=== PATIENT | male | born 1960 | race Caucasian/White ===

== ENCOUNTER → 2018-05-07 | Outpatient (REF) ==
[~2018-05-07] MED LIST: DIA5 PO; HYD2 PO
--- NOTE | 2018-05-07 15:51 | RADIOLOGY IMAGING REPORT ---
FACILITY: [facility] PATIENT NAME: Jhoan Menezes : 1960 MR: [id number] V: [id number] EXAM DATE: ORDERING PHYSICIAN: OZZIE HORN TECHNOLOGIST: Location: [facility] [place] Patient: Jhoan Menezes : 1960 Visit/Account:[id number] Date of Sevice: 05/07/2018 Exam type: CERVICAL SPINE MIN 4 VIEW History: History of cervical spine surgery, left arm weakness Comparison: February 04, 2013. Findings: Again noted is anterior fusion of the cervical spine from C3 to C7 with anterior plate and screws bon y fusion appears to been achieved of the vertebral bodies. No evidence of prevertebral soft tissue s welling. There is a 3 mm retrolisthesis of C2 with respect to C3 on the neutral lateral image which is reduced on the flexion image and increases to 4.5 mm on the extension view.. These findings appea r relatively unchanged when compared to the prior examination IMPRESSION: 1. Stable postoperative changes of the cervical spine as detailed above Report Dictated By: Veronica Craig MD at 05/07/2018 3:43 PM Report E-Signed By: Veronica Craig MD at 05/07/2018 3:48 PM WSN:[email or web address]
== END ==
LOC: RAD 12:21
PROVIDERS: ATTEND Orthopaedic Surgery Orthopaedic Surgery of the Spine
DX: R53.1 Weakness (principal); Z98.890 Other specified postprocedural states
CPT/HCPCS: 72050

== ENCOUNTER → 2018-05-08 | Outpatient (REF) ==
--- NOTE | 2018-05-08 16:06 | RADIOLOGY IMAGING REPORT ---
FACILITY: [facility] [place] PATIENT NAME: Jhoan Menezes : 1960 MR: [id number] V: [id number] EXAM DATE: [id number] ORDERING PHYSICIAN: OZZIE HORN TECHNOLOGIST: Location: [facility] - [place] Patient: Jhoan Menezes : 1960 Visit/Account:[id number] Date of Sevice: 05/08/2018 Exam type: LUMBAR SPINE 2 OR 3 VIEW History: Low back pain, no injury Comparison: None. Findings: There are five nonrib-bearing lumbar-type vertebral bodies present. There is mild to moderate disc s pace narrowing seen throughout the entire lumbar spine and visualized portion of the lower thoracic s pine other than L5-S1 where there is moderate to severe disc space narrowing and sclerosis of the adj acent endplates.. Marginal osteophytes are seen throughout the visualized lumbar spine. There is mi ld irregularity along the anterior superior endplate of L4 and L3. This could represent mild belkis madie fractures of indeterminate age. Given the marginal osteophytes findings suggest a chronic etiol ogy. There is straightening of normal lumbar lordosis. IMPRESSION: 1. Mild to moderate spondylotic changes throughout the thoracolumbar spine Moderate to severe spondylotic changes L5-S1. If symptoms persist MR may be helpful Report Dictated By: Veronica Craig MD at 05/08/2018 3:59 PM Report E-Signed By: Veronica Craig MD at 05/08/2018 4:02 PM WSN:[email or web address]
== END ==
LOC: RAD 15:27
PROVIDERS: ATTEND Orthopaedic Surgery Orthopaedic Surgery of the Spine
DX: M47.895 Other spondylosis, thoracolumbar region (principal); M47.897 Other spondylosis, lumbosacral region
CPT/HCPCS: 72100

== ENCOUNTER 2018-08-14 17:27 | Inpatient (IN) | payer SELFPAY ==
[~2018-08-14] VITALS: Ht 175.3 cm; Wt 67.3 kg
--- NOTE | 2018-08-14 17:40 | ER Report ---
History and Physical Time Seen By MD: 17:37 Hx. of Stated Complaint: pt states has poor balance and fell about one foot injuring L hip a few hours ago, (had a bone graft from his hip to his neck 2011) (KATHYA SILVER) Time Seen By MD: 17:56 (MERLIN JIMÉNEZ MD) HPI/ROS CHIEF COMPLAINT: Fall with right hip pain HISTORY OF PRESENT ILLNESS: This is a 58-year-old male. He loss his balance while shaking arrived on his front step. He fell and landed on the concrete directly onto his right hip. He does have a history of prior surgeries on the right hip for bone graft. He has pain with any movement of the right hip. He denies any other injuries at this time. He denies hitting his head or loss of consciousness. He denies any pain in the back. He has normal sensation in the foot and lower leg. He can move the lower leg and foot without any problems. Pain is extremely severe with any attempted movement of the hip itself. (MERLIN JIMÉNEZ MD) Allergies: Coded Allergies: acetaminophen (Verified Allergy, Mild, RASH, 03/29/12) Home Meds Reported Medications [blood pressure med] No Conflict Check 08/14/18 Fluticasone/Salmeterol (ADVAIR 100-50 DISKUS) 1 Each Disk.w.dev, 1 EACH IH 08/14/18 Naproxen Sodium (ALEVE) 220 Mg Capsule, 220 MG PO TID, CAPSULE 08/14/18 Discontinued Reported Medications Diazepam (Valium) 5 Mg Tab, 10 MG PO Q8H PRN, #30 0 Refills 04/04/12 Hydromorphone Hcl (Dilaudid) 2 Mg Tab, 2 MG PO Q6H PRN, #80 0 Refills 04/04/12 [None] No Conflict Check 03/08/12 Reviewed Nurses Notes: Yes (MERLIN IJMÉNEZ MD) Hx Substance Use Disorder: No Hx Alcohol Use: Yes (6 pk daily) (KATHYA SILVER) Constitutional Vital Sign - Last 24 Hours 08/14/18 08/14/18 08/14/18 08/14/18 17:27 17:31 17:34 17:42 Temp 98.4 Pulse ??? 79 80 Resp 22 B/P (MAP) 146/90 146/90 (108) Pulse Ox 95 99 O2 Delivery Room Air 08/14/18 08/14/18 08/14/18 08/14/18 17:57 18:00 18:12 18:27 Pulse 86 ??? 82 B/P (MAP) 140/99 (113) Pulse Ox 99 94 08/14/18 08/14/18 08/14/18 08/14/18 18:30 18:42 18:57 19:00 Pulse 92 90 B/P (MAP) 135/87 (103) 136/84 (101) Pulse Ox 95 94 08/14/18 08/14/18 08/14/18 08/14/18 19:12 19:17 19:30 19:32 Pulse 89 97 87 B/P (MAP) 132/85 (101) Pulse Ox 96 97 96 08/14/18 08/14/18 08/14/18 08/14/18 19:47 20:00 20:02 20:17 Pulse 96 86 92 B/P (MAP) 129/84 (99) Pulse Ox 95 96 95 08/14/18 08/14/18 08/14/18 20:30 20:32 20:47 Pulse 90 90 B/P (MAP) 132/87 (102) Pulse Ox 95 89 (MERLIN JIMÉNEZ MD) Physical Exam General Appearance: The patient is alert. He is in acute distress due to pain. Eyes: Pupils are equal, round. No pallor, injection or icterus. ENT: Mucous membranes are moist. Normal oral mucosa. Posterior oropharynx is normal. Neck: Supple and non tender. Respiratory: Breathing easily, no chest pain. Cardiovascular: Regular rate and rhythm. Normal capillary refill. Gastrointestinal: Abdomen is soft and non tender. Nondistended. Normal active bowel sounds. Neurological: Alert and oriented x3. No focal neurologic deficits Skin: Warm and dry. Musculoskeletal: No pain with palpation of right leg or the right hip. Pain worsens with any attempted range of motion, either passive or active. DIFFERENTIAL DIAGNOSIS: After history and physical exam, differential diagnosis was considered for fall with right hip pain. (MERLIN JIMÉNEZ MD) Medical Decision Making Data Points Result Diagram: 08/15/1851708/15/18517 EKG/Imaging Imaging INDICATION: fall, right hip pain. DATE: 08/14/2018 8:01 PM. TECHNIQUE: HIP RIGHT COMPARISON: None FINDINGS: A right femoral neck fracture is mildly displaced and impacted. The osseous excrescence at the right iliac crest is presumably from an old trauma. The pelvic ring appears intact. The sacrum is partially obscured by stool and bowel gas. IMPRESSION: Right femoral neck fracture. Report Dictated By: Mirian Mejias MD at 08/14/2018 8:01 PM (MERLIN JIMÉNEZ MD) ED Course/Re-evaluation Clinical Indication for ER IV: Hydration, IV Access ED Course After evaluation as noted, x-rays were obtained. This does show a right femoral neck fracture. Called and discussed the case with Dr. Garcia. He called and discussed the case with his colleague Dr. Gutierrez, who will be admitting and seeing the patient tomorrow. We will keep the patient nothing by mouth after midnight in anticipation of surgery tomorrow. They did ask if the hospitalist could consult for medical evaluation prior to surgery. Order given for Ancef 1 g national investigative producer to the OR. [employer]AND AMBASSADOR pump with Dilaudid ordered for pain control overnight and also gave a dose of Valium to try and help with pain and muscle spasm. The extraction for comfort also ordered. Discussed all of these plans with the patient and answered any questions that he and friends/family had. Decision to Disposition Date: Aug 14, 2018 Decision to Disposition Time: 21:00 (MERLIN JIMÉNEZ MD) Depart Departure Latest Vital Signs Vital Signs Date Time Temp Pulse Resp B/P (MAP) Pulse Ox O2 Delivery O2 Flow Rate FiO2 08/14/18 20:47 90 89 08/14/18 20:30 132/87 (102) 08/14/18 17:31 98.4 22 Room Air (MERLIN JIMÉNEZ MD) Impression: Primary Impression: Hip fracture, right Condition: Condition Unchanged Disposition: Admitted from ER Problem Qualifiers Primary Impression: Hip fracture, right Encounter type: initial encounter Fracture type: closed Qualified Codes: S72.001A - Fracture of unspecified part of neck of right femur, initial encounter for closed fracture KATHYA SILVER PRECISION AGRONOMIST-BC Aug 14, 2018 17:40 MERLIN JIMÉNEZ MD Aug 14, 2018 17:57
[2018-08-14] MEDS ORDERED: fentaNYL CITR 100 MCG/2 ML AMP IVP ONE (18:05)
[2018-08-14] MEDS ORDERED: HYDROMORPHONE HCL 1 MG/ML SYRINGE IVP ONE ×3 (19:15→21:05)
--- NOTE | 2018-08-14 20:06 | RADIOLOGY IMAGING REPORT ---
FACILITY: [facility] PATIENT NAME: Jhoan Menezes : 1960 MR: [id number] V: [id number] EXAM DATE: ORDERING PHYSICIAN: MERLIN JIMÉNEZ TECHNOLOGIST: Location: [facility] Patient: Jhoan Menezes : 1960 Visit/Account:[id number] Date of Sevice: 08/14/2018 INDICATION: fall, right hip pain. DATE: 08/14/2018 8:01 PM. TECHNIQUE: HIP RIGHT COMPARISON: None FINDINGS: A right femoral neck fracture is mildly displaced and impacted. The osseous excrescence at the right iliac crest is presumably from an old trauma. The pelvic ring appears intact. The sacrum is partially obscured by stool and bowel gas. IMPRESSION: Right femoral neck fracture. Report Dictated By: Mirian Mejias MD at 08/14/2018 8:01 PM Report E-Signed By: Mirian Mejias MD at 08/14/2018 8:03 PM WSN:[email or web address]
[2018-08-14] MEDS ORDERED: NAPR220C12 PO (20:37)
[2018-08-14] MEDS ORDERED: FLUT1DIS27 IH (20:37)
[2018-08-14] MEDS ORDERED: blood pressure med (20:37)
[2018-08-14] MEDS ORDERED: DIAZEPAM 50 MG/10 ML MDV IVP ONE (21:05)
[2018-08-14 21:49] VITALS: BP 115/60
[2018-08-14] MEDS ORDERED: ceFAZolin(*) 1 GM VIAL 1 GM in NS(*) 0.9% 100 ML ADDVANT BAG 100 ML IV ONE (22:30)
[2018-08-14] MEDS ORDERED: ONDANSETRON 4 MG/2 ML VIAL IVP PRN ×3 (22:45→23:15)
[2018-08-14] MEDS ORDERED: HYDROmorphone PCA 6 MG/30 ML IV PRN ×2 (22:45→23:15)
--- NOTE | 2018-08-14 23:07 | Hospitalist Consultation ---
History of Present Illness Requesting Physician Dr. Gutierrez Reason for Consult Pre-op evaluation/history of asthma Chief Complaint Fall/right hip pain History of Present Illness 58yo male with PMHx significant for asthma and hypertension. He reports falling at home on porch while shaking rugs to clean them. He states he had one foot only half on the step when he lost balance and fell striking his right hip. He had significant pain and difficulty ambulating. He contacted his niece who brought him to the ER. He was found to have right femoral neck fracture and admitted to the orthopedic service. He has had previous surgeries/anesthesia without problems. He denies any CP/dyspnea. He denies any history of bleeding or clotting problems. He does not smoke, but does chew tobacco. He drinks alcohol daily "about a six pack". History Problems: (1) Asthma Status: Chronic (2) HTN (hypertension) Status: Chronic (3) History of surgery on arm (4) History of fusion of cervical spine Home Meds Reported Medications [blood pressure med] No Conflict Check 08/14/18 Fluticasone/Salmeterol (ADVAIR 100-50 DISKUS) 1 Each Disk.w.dev, 1 EACH IH 08/14/18 Naproxen Sodium (ALEVE) 220 Mg Capsule, 220 MG PO TID, CAPSULE 08/14/18 Discontinued Reported Medications Diazepam (Valium) 5 Mg Tab, 10 MG PO Q8H PRN, #30 0 Refills 04/04/12 Hydromorphone Hcl (Dilaudid) 2 Mg Tab, 2 MG PO Q6H PRN, #80 0 Refills 04/04/12 [None] No Conflict Check 03/08/12 Allergies: Coded Allergies: acetaminophen (Verified Allergy, Mild, RASH, 03/29/12) Patient History: Renal failure MOTHER Scleroderma FATHER Hx Smoking: No Tobacco Used: Smokeless Hx Alcohol Use: Yes (6 pk daily) Review of Systems Constitutional: No Fever, No Chills, No Night Sweats Neurological: No Syncope, No Confusion, No Weakness, No Dizziness Eyes: No Vision Change, No Loss of Vision ENT: No Hearing Loss Cardiovascular: No Chest Pain, No Palpitations Respiratory: No Shortness of Breath, No Cough Gastrointestinal: No Nausea, No Vomiting, No Diarrhea, No Constipation, No Hematemesis, No Hematochezia, No Melena, No Abdominal Pain Genitourinary: No Dysuria, No Hematuria Musculoskeletal: Pain, Impaired Mobility Psychiatric: No Depression, No Anxiety Exam Vital Signs Vital Signs Date Time Temp Pulse Resp B/P (MAP) Pulse Ox O2 Delivery O2 Flow Rate FiO2 08/14/18 21:49 98.4 84 16 115/60 (78) 96 Nasal Cannula 3.0 General Appearance: Alert, Awake Neuro: Other (no focal deficits, but limitations due to right hip fracture) Eyes: PERRLA ENT: Oropharynx Clear Neck: No Masses Cardiovascular: Regular Rate and Rhythm Respiratory: Clear to Auscultation Chest: No Tenderness GI: Abd Soft and Non-Tender Extremities: Warm, Pulses (PT/DP normal bilaterally), Perfused Integumentary: Skin Intact without Lesion / Mass Psych: Alert & Oriented X3 Assessment and Plan Problems: (1) Hip fracture, right Status: Acute Assessment & Plan: Will check pre-op labs, EKG, CXR. No obvious contraindications based on his history. He will be at risk for possible alcohol withdrawal. He will need DVT prophylaxis post-op. (2) HTN (hypertension) Status: Chronic Assessment & Plan: His BPs are borderline low at the present time. Will hold off on any medications at this time. He does not recall what he is taking. Monitor closely. (3) Asthma Status: Chronic Assessment & Plan: Will continue his Advair. He does not appear to have any acute problem at this time. Venous Thromboembolism Antithrombotics Is Pt On Any Antithrombotics?: No (due to upcoming procedure) Exam Sepsis Risk: No Definite Risk SALMA BASILIO MD Aug 14, 2018 23:07
[2018-08-14] MEDS: KCL/D1/2NS 20 MEQ 1000 ML 1,000 ML IV SCH (23:09)
[2018-08-14] MEDS: HYDROmorphone PCA 6 MG/30 ML IV PRN (23:10)
[2018-08-15] VITALS (11 sets, daily range): BP systolic 119–159; BP diastolic 82–100; Ht 175.3 cm; Wt 67.3 kg
[2018-08-15 05:55] LABS: PLATELET COUNT, AUTOMATED 247 K/uL (150-450)
--- NOTE | 2018-08-15 06:03 | EKG ---
FACILITY: [facility] PATIENT NAME: BEATRICE DAVILA : [id number] MR: [id number] V: [id number] EXAM DATE: ORDERING PHYSICIAN: SALMA BASILIO TECHNOLOGIST: SURY Virgen Reason : PREOP Blood Pressure : / mmHG Vent. Rate : 090 BPM Atrial Rate : 090 BPM P-R Int : 148 ms QRS Dur : 086 ms QT Int : 370 ms P-R-T Axes : 048 021 023 degrees QTc Int : 452 ms Normal sinus rhythm Normal ECG Confirmed by Chas Downey ([id number]) on 08/15/2018 8:28:43 PM Referred By: Confirmed By:Chas Wilcox
[2018-08-15 06:08] LABS: INR 0.98
[2018-08-15] MEDS: SALMETEROL/FLUTIC 250/50 1 INH INH SCH ×2 (06:16→18:00)
--- NOTE | 2018-08-15 07:40 | RADIOLOGY IMAGING REPORT ---
FACILITY: [facility] PATIENT NAME: Jhoan Menezes : 1960 MR: [id number] V: [id number] EXAM DATE: ORDERING PHYSICIAN: SALMA BASILIO TECHNOLOGIST: Location: [facility] Patient: Jhoan Menezes : 1960 Visit/Account:[id number] Date of Sevice: 08/14/2018 CHEST SINGLE AP History: pre-op hip fracture/history of asthma FINDINGS: Comparison studies: None. Tubes and Lines: None. Lungs and pleura: Well aerated. No evidence of focal consolidation or pleural effusions. Mediastinum: normal. Cardiac silhouette: normal . Osseous structures: Cervical spinal fusion hardware noted. Mild bilateral osteoarthrosis of the gle nohumeral joints. IMPRESSION: Negative chest Report Dictated By: Inderjit Corral MD at 08/15/2018 7:33 AM Report E-Signed By: Inderjit Corral MD at 08/15/2018 7:35 AM WSN:[id number]
[2018-08-15] MEDS: HYDROmorphone PCA 6 MG/30 ML IV PRN (08:07)
[2018-08-15] MEDS: FOLIC ACID/CYANOCOB/PYRIDOXINE PO SCH (09:00)
[2018-08-15] MEDS: KCL/D1/2NS 20 MEQ 1000 ML 1,000 ML IV SCH (09:32)
--- NOTE | 2018-08-15 12:12 | HISTORY AND PHYSICAL ---
DATE OF SERVICE: August 15, 2018 ADMISSION DIAGNOSIS Right hip fracture. HISTORY OF PRESENT ILLNESS Mr. Menezes is a 58-year-old male who unfortunately slipped and fell about a foot off his front porch on the late evening of August 14, 2018. He was seen in the emergency room and found to have a displaced femoral neck fracture and was admitted to the orthopedic service with hospitalist consultation. He denies any numbness, tingling, no other complaints but does have right sided hip pain. PAST MEDICAL HISTORY * Significant for asthma. * Hypertension. PAST SURGICAL HISTORY * Cervical spine surgery with right iliac crest bone graft by Dr. Magana. * Right forearm surgery. ALLERGIES TYLENOL CURRENT MEDICATIONS * Advair * Blood pressure medication SOCIAL HISTORY Admits to chewing tobacco about a can per day. Admits to heavy alcohol use with a 6 pack plus per day. He does live at home and is currently seeking disability for arm dysfunction. PHYSICAL EXAMINATION On examination cervical spine demonstrates well healed incisions, limited range of motion. Right upper extremity demonstrating a well healed previous incision, radial, medial ulnar nerves are intact. Right hip does demonstrate internal rotation and shortening, general range of motion and log roll causes pain. He is nontender over the distal femur and knee. Plantar flexion, dorsiflexion, intact. Brisk capillary refills in his digits. Sensation, nerves are intact. LABORATORY DATA WBC 7.2, hematocrit 42.7, hemoglobin 14.9, platelets 247,000. INR is 0.98. Urinalysis is negative. X-rays from the emergency room do demonstrate a displaced femoral neck fracture on the right side. There are postoperative changes on the iliac crest from his previous bone grafting. ASSESSMENT This is a 58-year-old male with acute displaced femoral neck fracture. PLAN At this point, we have discussed risks, benefits, alternatives, possible complications of surgical and nonsurgical intervention with Mr. Menezes and at this stage he would like to proceed with surgery. He is going to proceed with surgery with Dr. Gutierrez for a total hip arthroplasty on the right hip this evening. [facility] CAN[facility]ER CENTERParminder
--- NOTE | 2018-08-15 12:52 | Hospitalist Progress Note ---
Subjective Progress Notes Subjective He has some complaints of nausea this morning. Patient Complains of: Cardiovascular: No: Chest Pain Respiratory: No: Shortness of Breath Gastrointestinal: Nausea, Vomiting Physical Exam Vital Signs Date Time Temp Pulse Resp B/P (MAP) Pulse Ox O2 Delivery O2 Flow Rate FiO2 08/15/18 09:21 98.4 84 18 139/100 (113) 95 Nasal Cannula 3.5 Intake and Output 08/15/18 07:00 Output Total 950 ml Balance -950 ml Output Urine Total 950 ml General Appearance: Alert, Awake, No Acute Distress, Afebrile Neuro: No Gross deficits Cardiovascular: Regular Rate and Rhythm Respiratory: No Respiratory Distress, Clear to Auscultation GI: Soft and Non-Tender Psych: Alert & Oriented X3, Appropriate Mood & Affect Result Diagram: 08/15/1851708/15/18517 Assessment and Plan Problems: (1) Hip fracture, right Status: Acute Assessment & Plan: Will check pre-op labs, EKG, CXR. No obvious contraindications based on his history. He will be at risk for possible alcohol withdrawal. He will need DVT prophylaxis post-op. (2) HTN (hypertension) Status: Chronic Assessment & Plan: His BPs are borderline normal at the present time. Will hold off on any medications at this time. He does not recall what he is taking. Monitor closely. (3) Asthma Status: Chronic Assessment & Plan: Will continue his Advair. He does not appear to have any acute problem at this time. (4) Alcohol abuse Status: Acute Assessment & Plan: He reports he drinks a 6 pack daily. CIWA assessments ordered and Ativan ordered. He is NPO now, but after surgery recommend starting Valium if needed for CIWA. Exam Sepsis Risk: No Definite Risk Problem Qualifiers (1) Hip fracture, right: Encounter type: initial encounter Fracture type: closed Qualified Codes: S72.001A - Fracture of unspecified part of neck of right femur, initial encounter for closed fracture SUSAN WADE MID LEVEL PROVIDER Aug 15, 2018 12:52
[2018-08-15] MEDS: LORazepam 2 MG/ML VIAL IVP PRN (14:21)
[2018-08-15] MEDS ORDERED: cloNIDine EPIDUR INJ 100MCG/ML 40 MCG, ROPIVACAINE 0.5% 20 ML VIAL 25 ML, EPINEPHrine H... EPI ONE (14:30)
[2018-08-15] MEDS ORDERED: TRANEXAMIC AC 1000 MG/10ML SDV 1,000 MG in DEXTROSE 5% 50 ML BAG 50 ML IV ONE (14:30)
[2018-08-15] MEDS ORDERED: BACITRACIN 50000 UNIT/VIAL 100,000 UNIT in NS 0.9% 3000 ML IRRIGATION BAG 3,000 ML IR ONE (14:30)
[2018-08-15] MEDS ORDERED: FAMOTIDINE 20 MG TAB PO ONE (15:30)
[2018-08-15] MEDS ORDERED: NORMOSOL R SOLN(*) 1000 ML BAG 1,000 ML IV ONE (16:00)
[2018-08-15] MEDS ORDERED: ceFAZolin(*) 1 GM VIAL 1 GM in NS(*) 0.9% 100 ML ADDVANT BAG 100 ML IV ONE (16:00)
[2018-08-15] MEDS ORDERED: DEXAMETHASONE SOD 4 MG/ML VIAL ONE (16:39)
[2018-08-15] MEDS ORDERED: ONDANSETRON 4 MG/2 ML VIAL ONE (16:39)
[2018-08-15] MEDS ORDERED: PROPOFOL EMUL(*) 10MG/ML 20 ML 20 ML ONE (16:39)
[2018-08-15] MEDS ORDERED: fentaNYL CITR 100 MCG/2 ML AMP ONE (16:39)
[2018-08-15] MEDS ORDERED: LIDOCAINE MPF 1% 5 ML VIAL ONE (16:39)
[2018-08-15] MEDS ORDERED: FAMOTIDINE(*) 20MG/50ML PREMIX 50 ML IVPB ONE (16:41)
[2018-08-15] MEDS ORDERED: KETAMINE HCL 200 MG/20 ML MDV ONE ×2 (17:28→17:44)
[2018-08-15] MEDS ORDERED: MAGNESIUM CITRATE 300 ML BTL PO PRN ×2 (19:50→22:15)
[2018-08-15] MEDS ORDERED: diphenhydrAMINE 25 MG CAP PO PRN ×2 (19:50→22:15)
[2018-08-15] MEDS ORDERED: ZOLPIDEM TARTRATE 5 MG TAB PO PRN ×2 (19:50→22:15)
[2018-08-15] MEDS ORDERED: MAGNESIUM HYDROXIDE* 30ML UDCP PO PRN ×2 (19:50→22:15)
[2018-08-15] MEDS ORDERED: ONDANSETRON 4 MG/2 ML VIAL IVP PRN ×2 (19:50→22:15)
[2018-08-15] MEDS ORDERED: LR 1000 ML BAG 1000 ML IV PRN ×2 (19:50→22:15)
[2018-08-15] MEDS ORDERED: FLUSH 10 ML SYR IVP PRN ×2 (19:50→22:15)
[2018-08-15] MEDS ORDERED: BISACODYL 10 MG SUPP PR PRN ×2 (19:50→22:15)
[2018-08-15] MEDS ORDERED: PROMETHAZINE 25 MG/ML 1 ML AMP IVP PRN ×2 (19:50→22:15)
[2018-08-15] MEDS ORDERED: diphenhydrAMINE 50 MG/ML VIAL IVP PRN ×2 (19:50→22:15)
--- NOTE | 2018-08-15 20:15 | OPERATIVE REPORT 1 ---
EVENT DATE: August 15, 2018 SURGEON: Elroy Gutierrez MD ANESTHESIOLOGIST: Jensen Garner MD ANESTHESIA: General plus spinal. SALES REPRESENTATIVE AIRCRAFT: JUDIE Jarvis PREOPERATIVE DIAGNOSIS Right hip femoral neck fracture and subcapital fracture. POSTOPERATIVE DIAGNOSIS Right hip femoral neck fracture and subcapital fracture with a little bit of arthritis. PROCEDURE PERFORMED Right total hip arthroplasty done for a fracture. FINDINGS The patient had arthritic changes on the superior aspect of the femoral head and also superior part of the acetabulum. Given his age and these findings, we ended up doing a total hip rather than a bipolar. ESTIMATED BLOOD LOSS About 200 mL. DRAINS None. COMPLICATIONS Small crack in the calcar neck, but did not perpetuate past that area. It did not go all the way through and was just maybe a 1 cm x 0.5 cm piece of bone that was stable, so it was just left in place and did not need cabling. TOURNIQUET TIME Not applicable. IMPLANTS USED Nikita ML Taper Stem which was a size 10 with a +3.5, 40 mm ceramic head, a neutral liner to a 56 mm cup that was a Trabecular Metal Cluster Hole Cup with a 35 mm screw into the superior hole. SPECIMENS None. INDICATIONS AND HISTORY This patient is a 58-year-old male who presented to the hospital with a femoral neck fracture on the right side. He does not recall how he fell. It does sound like he drinks quite a bit of alcohol and has some balance problems and issues associated with this, and so therefore, he fell and landed on his right hip. He was found to have a femoral neck fracture. He was admitted by my partner, Dr. Garcia, and then was set up for a bipolar versus total hip arthroplasty today, August 15, 2018. The risks and benefits were discussed with the patient, and informed consent was obtained. Unfortunately, when we actually got to sign a consent, he had had quite a bit of Ativan, but we did verbally discuss it with him prior to the procedure, and Anesthesia had done the same with the anesthetic aspects. DESCRIPTION OF PROCEDURE As the patient was brought in the operating room, he and the procedure were verified. He was placed on his side and given a spinal by Anesthesia. He was then turned on his back, then intubated, and then turned on his side in the lateral decubitus position with the right hip towards the ceiling. The right hip was then prepped and draped in the usual fashion. A timeout was observed verifying the correct patient and procedure. The standard incision was made over the posterolateral aspect of the hip. It was taken through the skin and subcutaneous tissue. He had very little subcutaneous tissue in this area, and we got all the way down to the IT band and the gluteal musculature. Once I was able to split this, I then put a Charnley retractor underneath this, then identified the short external rotators, and took them down in a standard fashion. I then tagged the piriformis for later repair. I was then able to take the capsule down and then tag the capsule for later repair. Once we did this, we were able to dislocate the hip, then remove the head without any difficulty, and freshen up the neck cut without any issues. I then turned attention to the acetabulum where there was noted to be some superior wear on the acetabulum in the cartilage area and then also on the femoral head in the superior area where the x-rays had indicated that he may have some cartilage loss in this area. I, therefore, then proceeded with a total hip arthroplasty by subsequently taking out the labrum and then reaming up to a 55 mm reamer and then placing a 56 mm cup. The cup was put in a little bit of a horizontal position on purposed secondarily due to the patient's falling and alcoholism aspects and with a little bit more version in order to try and assert less dislocations. I then put in a screw to hold it in place. He did not have the greatest bone in this area as it was a little bit osteoporotic. This then made the cut very stable, and then we put in the liner without any difficulty after irrigating with copious amounts of saline with the pulsatile lavage, which we had done throughout the entire case. We then turned attention to the femur, and then I was able to freshen up the cut with a box cutting osteotome. This was then followed by the canal finder and lateralizing reamer. I then was able to broach from a [address] up to a 10. We then took intraoperative x-rays of the stem and the head. This was found to be a little bit short, and so therefore, we then placed a +3.5 head, and this looked significantly better. We then dislocated the hip and then put in the final stem. Upon putting in the final stem, there was noted to be a small crack in the calcar. There were actually two areas of cracking which looked like just a small piece in the calcar which was just a small fragment which was not unstable and did not have any instability associated with the stem. The stem was not loose. We took another intraoperative x-ray just to verify that there were no signs of problems or anything to cable, and there were no signs of propagation of that crack. It was just very small at the very top, so therefore, we did not need to address it. I then relocated the hip without any difficulty, closed the capsule with a heavy Ethibond. This was then followed by closure of the piriformis and attaching it back to the posterior aspect of the femur using drill holes through the posterior aspect of the femur. I then was able to close the gluteal musculature and the IT band with a #2 Stratafix, then 2-0 Stratafix was utilized in the subcutaneous tissue, and then subcuticular 4-0 running Monocryl was utilized in the skin. I did utilize a joint cocktail in the middle portion of the case in order to get better anesthetization and then put in Steri-Strips, gauze 4 x 4's, and then a soft dressing over the hip with a hip wrap. The patient was then awakened, extubated, and transferred to PACU in stable condition. He will be admitted and then will be weightbearing as tolerated with Medicine following. STACEY
--- NOTE | 2018-08-15 21:36 | RADIOLOGY IMAGING REPORT ---
FACILITY: [facility] - [place] PATIENT NAME: Jhoan Menezes : 1960 MR: [id number] V: [id number] EXAM DATE: ORDERING PHYSICIAN: MACO ADLER TECHNOLOGIST: Location: [facility] [place] Patient: Jhoan Menezes : 1960 Visit/Account:[id number] Date of Sevice: 08/15/2018 Examination: HIP IN OR RIGHT Comparison: 08/14/2018 History: Right hip fracture. Findings: Right hip arthroplasty with noncemented femoral component. No periprosthetic fracture. The visualized pelvic ring is intact. Left hip alignment is within normal limits. Expected postoperative change in the soft tissues. IMPRESSION: Normal alignment of the right hip arthroplasty. Report Dictated By: Ryder Julien MD at 08/15/2018 9:30 PM Report E-Signed By: Ryder Julien MD at 08/15/2018 9:32 PM [id number]
--- NOTE | 2018-08-15 21:38 | RADIOLOGY IMAGING REPORT ---
FACILITY: [facility] PATIENT NAME: Jhoan Menezes : 1960 MR: [id number] V: [id number] EXAM DATE: ORDERING PHYSICIAN: MACO ADLER TECHNOLOGIST: Location: [facility] - [place] Patient: Jhoan Menezes : 1960 Visit/Account:[id number] Date of Sevice: 08/15/2018 Examination: HIP IN OR RIGHT Comparison: Earlier the same day. History: RIGHT HIP FRACTURE/POSSIBLE FEMUR FRACTURE Findings: Right hip arthroplasty; the femoral component has been exchanged. Component alignment is wi thin normal limits. No periprosthetic fracture. Expected postoperative change in the soft tissues. IMPRESSION: Right hip arthroplasty with exchange of the femoral component. Report Dictated By: Ryder Julien MD at 08/15/2018 9:32 PM Report E-Signed By: Ryder Julien MD at 08/15/2018 9:33 PM [id number]
--- NOTE | 2018-08-15 21:39 | RADIOLOGY IMAGING REPORT ---
FACILITY: [facility] - [place] PATIENT NAME: Jhoan Menezes : 1960 MR: [id number] V: [id number] EXAM DATE: ORDERING PHYSICIAN: MACO ADLER TECHNOLOGIST: [place] [facility] [place]: Jhoan Menezes : 1960 Visit/Account:[id number] Date of Sevice: 08/15/2018 Examination: PELVIS Comparison: Same day and earlier. History: Right hip arthroplasty. Findings: Right total hip arthroplasty with noncemented femoral component. Component alignment is wit hin normal limits. No periprosthetic fracture. The visualized pelvic ring is intact. Chronic deformit y of the right iliac crest. Left hip alignment is within normal limits. Atherosclerosis. Expected pos toperative change in the soft tissues. IMPRESSION: Expected postoperative appearance of the right total hip arthroplasty. Report Dictated By: Ryder Julien MD at 08/15/2018 9:34 PM Report E-Signed By: Ryder Julien MD at 08/15/2018 9:35 PM [id number]
[2018-08-15] MEDS ORDERED: HYDROmorphone HCL 2 MG/ML SDV IVP PRN (22:15)
[2018-08-15] MEDS ORDERED: oxyCODONE HCL 5 MG CAP PO PRN (22:25)
[2018-08-16] VITALS (13 sets, daily range): BP systolic 108–147; BP diastolic 75–96
[2018-08-16] MEDS: ceFAZolin(*) 1 GM VIAL 1 GM in NS(*) 0.9% 100 ML ADDVANT BAG 100 ML IVPB SCH ×3 (00:43→17:28)
[2018-08-16] MEDS ORDERED: ceFAZolin(*) 1 GM VIAL 1 GM in NS(*) 0.9% 100 ML ADDVANT BAG 100 ML IVPB SCH (01:00)
[2018-08-16] MEDS: LORazepam 2 MG/ML VIAL IVP PRN ×3 (01:37→05:14)
[2018-08-16] MEDS: SALMETEROL/FLUTIC 250/50 1 INH INH SCH ×2 (05:02→18:08)
[2018-08-16] MEDS ORDERED: FOLIC ACID 1 MG TAB PO SCH (09:00)
[2018-08-16] MEDS: THIAMINE HCL 100 MG TAB PO SCH (09:43)
[2018-08-16] MEDS: ENOXAPARIN 40 MG/0.4ML SYR SC SCH (09:44)
[2018-08-16] MEDS: FOLIC ACID/CYANOCOB/PYRIDOXINE PO SCH (09:44)
--- NOTE | 2018-08-16 09:57 | Hospitalist Progress Note ---
Subjective Progress Notes Subjective He has some altered mental status this morning. He is actively withdrawing from alcohol. Patient Complains of: Cardiovascular: No: Chest Pain Respiratory: No: Shortness of Breath Physical Exam Vital Signs Date Time Temp Pulse Resp B/P (MAP) Pulse Ox O2 Delivery O2 Flow Rate FiO2 08/16/18 08:39 98.7 82 8 135/96 (109) 94 Nasal Cannula 1.0 Intake and Output 08/16/18 07:00 Intake Total 3740 ml Output Total 1725 ml Balance 2015 ml Intake Oral 240 ml IV Total 1800 ml Other 1700 ml Output Urine Total 975 ml Emesis 600 ml Estimated Blood Loss 150 ml General Appearance: Awake, No Acute Distress, Afebrile Neuro: No Gross deficits Cardiovascular: Regular Rate and Rhythm Respiratory: No Respiratory Distress, Clear to Auscultation GI: Soft and Non-Tender Extremities: No Edema Psych: Other (he is aware he is in hospital, he thinks he is in [place]) Result Diagram: 08/16/1852908/15/18517 Assessment and Plan Problems: (1) Hip fracture, right Status: Acute Assessment & Plan: He had pre-op labs, EKG, CXR. No obvious contraindications based on his history. He will be started on Lovenox for DVT prophylaxis. (2) HTN (hypertension) Status: Chronic Assessment & Plan: His BPs are borderline normal at the present time. Will hold off on any medications at this time. He does not recall what he is taking. Monitor closely. (3) Asthma Status: Chronic Assessment & Plan: Will continue his Advair. He does not appear to have any acute problem at this time. (4) Alcohol abuse Status: Acute Assessment & Plan: He reports he drinks a 6 pack daily. CIWA assessments ordered. He will be started on Valium if needed for CIWA. Mental status changes could be secondary to alcohol detox and anesthesia combined. Continue to monitor. Exam Sepsis Risk: No Definite Risk Problem Qualifiers (1) Hip fracture, right: Encounter type: initial encounter Fracture type: closed Qualified Codes: S72.001A - Fracture of unspecified part of neck of right femur, initial encounter for closed fracture SUSAN WADE BIOMEDICAL EQUIPMENT TECHNICIAN Aug 16, 2018 09:57
[2018-08-16] MEDS: oxyCODONE HCL 5 MG CAP PO PRN ×2 (09:59→17:47)
[2018-08-16] MEDS: DIAZEPAM 10 MG TAB PO PRN ×6 (12:43→20:44)
[2018-08-16] MEDS: HYDROmorphone HCL 2 MG/ML SDV IVP PRN ×2 (15:02→21:11)
[2018-08-16] MEDS: NICOTINE POLACRILEX 2 MG GUM PO PRN (19:02)
[2018-08-16] MEDS ORDERED: AMLO-113 PO (20:08)
[2018-08-16] MEDS ORDERED: NAPR-417 PO (20:12)
[2018-08-17] VITALS (12 sets, daily range): BP systolic 117–140; BP diastolic 78–101
[2018-08-17] MEDS: DIAZEPAM 10 MG TAB PO PRN ×9 (04:49→23:33)
[2018-08-17] MEDS: HYDROmorphone HCL 2 MG/ML SDV IVP PRN (04:50)
[2018-08-17 06:08] LABS: PLATELET COUNT, AUTOMATED 159 K/uL (150-450)
[2018-08-17] MEDS: THIAMINE HCL 100 MG TAB PO SCH (08:34)
[2018-08-17] MEDS: ENOXAPARIN 40 MG/0.4ML SYR SC SCH (08:34)
[2018-08-17] MEDS: FOLIC ACID/CYANOCOB/PYRIDOXINE PO SCH (08:34)
--- NOTE | 2018-08-17 11:34 | Hospitalist Progress Note ---
Subjective Progress Notes Subjective He is still disoriented to place and time this morning. He is still requiring Valium for his alcohol detox this morning. Patient Complains of: Cardiovascular: No: Chest Pain Respiratory: No: Shortness of Breath Physical Exam Vital Signs Date Time Temp Pulse Resp B/P (MAP) Pulse Ox O2 Delivery O2 Flow Rate FiO2 08/17/18 10:39 97.7 81 12 133/93 (106) 97 Nasal Cannula 1.0 Intake and Output 08/17/18 06:59 Intake Total 830 ml Output Total 1350 ml Balance -520 ml Intake Oral 600 ml IV Total 230 ml Output Urine Total 1350 ml # Voids 1 General Appearance: No Acute Distress, Afebrile Neuro: No Gross deficits Cardiovascular: Regular Rate and Rhythm Respiratory: No Respiratory Distress, Clear to Auscultation Psych: Other (disoriented to place and time) Result Diagram: 08/17/1854408/17/18544 Assessment and Plan Problems: (1) Hip fracture, right Status: Acute Assessment & Plan: He had pre-op labs, EKG, CXR. No obvious contraindications based on his history. He will be started on Lovenox for DVT prophylaxis. (2) HTN (hypertension) Status: Chronic Assessment & Plan: His BPs are borderline normal at the present time. Will hold off on any medications at this time. He does not recall what he is taking. Monitor closely. (3) Asthma Status: Chronic Assessment & Plan: Will continue his Advair. He does not appear to have any acute problem at this time. (4) Alcohol abuse Status: Acute Assessment & Plan: He reports he drinks a 6 pack daily. CIWA assessments order ed. He was started on Valium if needed for CIWA. Mental status changes could be secondary to alcohol detox and anesthesia combined. Continue to monitor. Exam Sepsis Risk: No Definite Risk Problem Qualifiers (1) Hip fracture, right: Encounter type: initial encounter Fracture type: closed Qualified Codes: S72.001A - Fracture of unspecified part of neck of right femur, initial encounter for closed fracture SUSAN WADE LUBRICATION WORKER Aug 17, 2018 11:34
[2018-08-17] MEDS: NICOTINE POLACRILEX 2 MG GUM PO PRN (11:56)
[2018-08-17] MEDS: oxyCODONE HCL 5 MG CAP PO PRN ×2 (13:52→21:50)
[2018-08-17] MEDS: SALMETEROL/FLUTIC 250/50 1 INH INH SCH ×2 (17:51→18:00)
[2018-08-18] MEDS: DIAZEPAM 10 MG TAB PO PRN ×2 (00:36→06:26)
[2018-08-18] MEDS: SALMETEROL/FLUTIC 250/50 1 INH INH SCH ×2 (06:00→17:22)
[2018-08-18] MEDS: oxyCODONE HCL 5 MG CAP PO PRN ×3 (06:25→16:26)
[2018-08-18 06:40] LABS: PLATELET COUNT, AUTOMATED 192 K/uL (150-450)
[2018-08-18] MEDS: LORazepam 2 MG/ML VIAL IVP PRN (06:40)
[2018-08-18 07:19] VITALS: BP 135/104
[2018-08-18] MEDS: ENOXAPARIN 40 MG/0.4ML SYR SC SCH (08:17)
[2018-08-18] MEDS: THIAMINE HCL 100 MG TAB PO SCH (08:18)
[2018-08-18] MEDS: FOLIC ACID/CYANOCOB/PYRIDOXINE PO SCH (08:18)
--- NOTE | 2018-08-18 08:58 | Hospitalist Progress Note ---
Subjective Progress Notes Subjective He is somewhat somnolent this AM, but does awaken and tries to answer questions. Physical Exam Vital Signs Date Time Temp Pulse Resp B/P (MAP) Pulse Ox O2 Delivery O2 Flow Rate FiO2 08/18/18 08:03 98 Room Air 0.5 08/18/18 07:19 98.5 93 16 135/104 (114) 93 Intake and Output 08/18/18 07:00 Intake Total 220 ml Output Total 350 ml Balance -130 ml Intake Oral 220 ml Output Urine Total 350 ml # Voids 1 General Appearance: Other (somnolent) Neuro: Other (he does move all four extremities) Cardiovascular: Regular Rate and Rhythm, No Edema Respiratory: Clear to Auscultation (decreased effort) Chest: No Tenderness GI: Soft and Non-Tender Extremities: Warm, Perfused Result Diagram: 08/18/1861108/18/18611 Assessment and Plan Problems: (1) Hip fracture, right Status: Acute Assessment & Plan: He had MINDI with Dr. Gutierrez on 08/15/18 and appears to have tolerated well. He has had alcohol withdrawal post-op, which has complicated his rehab. He is on Lovenox for DVT prophylaxis. (2) HTN (hypertension) Status: Chronic Assessment & Plan: His BPs are borderline normal/elevated at the present time, likely due to withdrawal. Will hold off on any medications at this time. Monitor closely. (3) Asthma Status: Chronic Assessment & Plan: Will continue his Advair. He does not appear to have any acute problems at this time. (4) Alcohol abuse Status: Acute Assessment & Plan: He reports he drinks a 6 pack of beer daily - I suspect it is probably more. He is on CIWA protocol and has been receiving benzodiazepines. He is also getting B vitamins. Continue to monitor. Exam Sepsis Risk: No Definite Risk Problem Qualifiers (1) Hip fracture, right: Encounter type: initial encounter Fracture type: closed Qualified Codes: S72.001A - Fracture of unspecified part of neck of right femur, initial encounter for closed fracture SALMA BASILIO MD Aug 18, 2018 08:58
[2018-08-18 10:51] VITALS: BP 129/102
[2018-08-18 14:36] VITALS: BP 138/105
[2018-08-18] MEDS: NICOTINE 14 MG/24 HR PATCH TD SCH (16:26)
[2018-08-18 20:36] VITALS: BP 110/80
[2018-08-18 23:41] VITALS: BP 131/96
[2018-08-19] VITALS (7 sets, daily range): BP systolic 109–131; BP diastolic 76–92
[2018-08-19] MEDS: DIAZEPAM 10 MG TAB PO PRN (03:20)
[2018-08-19] MEDS: SALMETEROL/FLUTIC 250/50 1 INH INH SCH ×2 (06:04→17:13)
[2018-08-19] MEDS: THIAMINE HCL 100 MG TAB PO SCH (09:00)
[2018-08-19] MEDS: FOLIC ACID/CYANOCOB/PYRIDOXINE PO SCH (09:00)
[2018-08-19] MEDS: NICOTINE 14 MG/24 HR PATCH TD SCH (09:02)
[2018-08-19] MEDS: ENOXAPARIN 40 MG/0.4ML SYR SC SCH (09:02)
[2018-08-19] MEDS: oxyCODONE HCL 5 MG CAP PO PRN ×2 (10:00→18:03)
--- NOTE | 2018-08-19 12:58 | Hospitalist Progress Note ---
Subjective Progress Notes Subjective 58M admitted for Hip Fx and subsequently underwent EtOH withdrawal. Symptoms improving may be ready for discharge to Rehab in near future. Patient Complains of: Respiratory: No: Cough, Congestion Gastrointestinal: No Nausea, No Vomiting Musculoskeletal: Pain Physical Exam Vital Signs Date Time Temp Pulse Resp B/P (MAP) Pulse Ox O2 Delivery O2 Flow Rate FiO2 08/19/18 12:12 98.2 92 16 129/87 (101) 96 Room Air 08/19/18 03:05 0.5 Intake and Output 08/19/18 06:59 Intake Total 220 ml Output Total 820 ml Balance -600 ml Intake Oral 220 ml Output Urine Total 820 ml # Voids 2 General Appearance: Alert, Awake, No Acute Distress Neuro: No Gross deficits Eyes: PERRLA ENT: Normal Cardiovascular: Normal Rhythm & Peripheral Pulses Respiratory: No Respiratory Distress GI: Soft and Non-Tender Musculoskeletal: Other (+ leg pain) Integumentary: Skin Intact without Lesion / Mass Result Diagram: 08/18/1861108/18/18611 Assessment and Plan Problems: (1) Hip fracture, right Status: Acute Assessment & Plan: He had MINDI with Dr. Gutierrez on 08/15/18 and appears to have tolerated well. He has had alcohol withdrawal post-op, which has complicated his rehab. He is on Lovenox for DVT prophylaxis. (2) HTN (hypertension) Status: Chronic Assessment & Plan: His BPs are borderline normal/elevated at the present time, likely due to withdrawal. Will hold off on any medications at this time. Monitor closely. (3) Asthma Status: Chronic Assessment & Plan: Will continue his Advair. He does not appear to have any acute problems at this time. (4) Alcohol abuse Status: Acute Assessment & Plan: Improving. He reports he drinks a 6 pack of beer daily - I suspect it is probably more. He is on CIWA protocol and has been receiving benzodiazepines. He is also getting B vitamins. Continue to monitor. Exam Sepsis Risk: No Definite Risk Problem Qualifiers (1) Hip fracture, right: Encounter type: initial encounter Fracture type: closed Qualified Codes: S72.001A - Fracture of unspecified part of neck of right femur, initial enc ounter for closed fracture ESPINOZA CARRILLO DO Aug 19, 2018 12:58
[2018-08-19] MEDS: HYDROmorphone HCL 2 MG/ML SDV IVP PRN ×2 (13:42→23:55)
[2018-08-19] MEDS: DOCUSATE SODIUM 100 MG CAP PO SCH (21:31)
[2018-08-20] MEDS: oxyCODONE HCL 5 MG CAP PO PRN ×3 (01:56→18:18)
[2018-08-20 03:48] VITALS: BP 125/93
[2018-08-20] MEDS: HYDROmorphone HCL 2 MG/ML SDV IVP PRN (03:53)
[2018-08-20] MEDS: SALMETEROL/FLUTIC 250/50 1 INH INH SCH ×2 (06:45→18:00)
[2018-08-20 06:56] VITALS: BP 131/102
[2018-08-20 08:07] VITALS: BP 116/89
[2018-08-20] MEDS ORDERED: amLODIPine BESYL(*) 5 MG TAB PO SCH (09:00)
[2018-08-20] MEDS: DOCUSATE SODIUM 100 MG CAP PO SCH (09:42)
[2018-08-20] MEDS: POLYETHYLENE GLYCOL 17 GM PKT PO SCH (09:42)
[2018-08-20] MEDS: NICOTINE 14 MG/24 HR PATCH TD SCH (09:42)
[2018-08-20] MEDS: THIAMINE HCL 100 MG TAB PO SCH (09:42)
[2018-08-20] MEDS: amLODIPine BESYL(*) 5 MG TAB PO SCH (09:43)
[2018-08-20] MEDS: ENOXAPARIN 40 MG/0.4ML SYR SC SCH (09:43)
[2018-08-20] MEDS: DIAZEPAM 5 MG TAB PO PRN ×2 (09:46→14:10)
[2018-08-20] MEDS: FOLIC ACID/CYANOCOB/PYRIDOXINE PO SCH (09:46)
[2018-08-20] MEDS: DIAZEPAM 10 MG TAB PO PRN (09:46)
--- NOTE | 2018-08-20 11:41 | Hospitalist Progress Note ---
Subjective Progress Notes Subjective He has no complaints this morning. He had no acute events overnight. Patient Complains of: Cardiovascular: No: Chest Pain Respiratory: No: Shortness of Breath Physical Exam Vital Signs Date Time Temp Pulse Resp B/P (MAP) Pulse Ox O2 Delivery O2 Flow Rate FiO2 08/20/18 06:56 98.4 100 20 131/102 (112) 96 08/20/18 03:48 Nasal Cannula 0.5 Intake and Output 08/20/18 01:00 Intake Total 120 ml Output Total 975 ml Balance -855 ml Intake Oral 120 ml Output Urine Total 975 ml # Voids 1 General Appearance: Alert, Awake, No Acute Distress, Afebrile Neuro: No Gross deficits Cardiovascular: Regular Rate and Rhythm Respiratory: No Respiratory Distress, Clear to Auscultation GI: Soft and Non-Tender Extremities: Warm, Perfused; No Edema Psych: Alert & Oriented X3, Appropriate Mood & Affect Result Diagram: 08/18/18 0612 08/20/18 0535 Assessment and Plan Problems: (1) Hip fracture, right Status: Acute Assessment & Plan: He had MINDI with Dr. Gutierrez on 08/15/18 and appears to have tolerated well. He has had alcohol withdrawal post-op, which has complicated his rehab. He is on Lovenox for DVT prophylaxis. (2) HTN (hypertension) Status: Chronic Assessment & Plan: He does take amlodipine chronically. This has been restarted 08/20 with parameters. (3) Asthma Status: Chronic Assessment & Plan: Will continue his Advair. He does not appear to have any acute problems at this time. (4) Alcohol abuse Status: Acute Assessment & Plan: Improving. He reports he drinks a 6 pack of beer daily - I suspect it is probably more. He is on CIWA protocol and has been receiving benzodiazepines. He is also getting B vitamins. Continue to monitor. Exam Sepsis Risk: No Definite Risk Problem Qualifiers (1) Hip fracture, right: Encounter type: initial encounter Fracture type: closed Qualified Codes: S72.001A - Fracture of unspecified part of neck of right femur, initial encounter for closed fracture SUSAN WADE SELF DEFENSE INSTRUCTOR Aug 20, 2018 11:41
[2018-08-20 16:14] VITALS: BP 121/80
[2018-08-20 19:23] VITALS: BP 128/81
[2018-08-21] VITALS (7 sets, daily range): BP systolic 99–146; BP diastolic 72–89
[2018-08-21] MEDS: oxyCODONE HCL 5 MG CAP PO PRN ×3 (04:33→19:02)
[2018-08-21] MEDS: DIAZEPAM 5 MG TAB PO PRN (06:13)
[2018-08-21] MEDS: FOLIC ACID/CYANOCOB/PYRIDOXINE PO SCH (09:35)
[2018-08-21] MEDS: POLYETHYLENE GLYCOL 17 GM PKT PO SCH (09:36)
[2018-08-21] MEDS: DOCUSATE SODIUM 100 MG CAP PO SCH ×2 (09:36→22:15)
[2018-08-21] MEDS: THIAMINE HCL 100 MG TAB PO SCH (09:36)
[2018-08-21] MEDS: amLODIPine BESYL(*) 5 MG TAB PO SCH (09:36)
[2018-08-21] MEDS: ENOXAPARIN 40 MG/0.4ML SYR SC SCH (09:37)
[2018-08-21] MEDS: NICOTINE 14 MG/24 HR PATCH TD SCH (09:37)
[2018-08-21] MEDS ORDERED: NALOXONE HCL 0.4 MG/ML VIAL IVP PRN (13:25)
[2018-08-21 13:54] LABS: PLATELET COUNT, AUTOMATED 288 K/uL (150-450)
--- NOTE | 2018-08-21 14:05 | Hospitalist Progress Note ---
Subjective Progress Notes Subjective He had an episode of slow respirations and decreased awakening. He was given Narcan, which helped resolve symptoms. Patient did awaken and had complaints of pain. He has not been progressing well with physical therapy. Patient Complains of: Cardiovascular: No: Chest Pain Respiratory: No: Shortness of Breath Physical Exam Vital Signs Date Time Temp Pulse Resp B/P (MAP) Pulse Ox O2 Delivery O2 Flow Rate FiO2 08/21/18 13:33 98.1 08/21/18 13:14 101 8 97 Nasal Cannula 2.0 Intake and Output 08/21/18 01:00 Intake Total 240 ml Balance 240 ml Intake Oral 240 ml General Appearance: Alert, Awake, No Acute Distress, Afebrile Neuro: No Gross deficits Cardiovascular: Regular Rate and Rhythm Respiratory: No Respiratory Distress (improved after Narcan), Clear to Auscultation GI: Soft and Non-Tender Extremities: Warm, Perfused; No Edema Psych: Other (decreased mental status) Result Diagram: 08/18/18 0612 08/20/18 0535 Assessment and Plan Problems: (1) Hip fracture, right Status: Acute Assessment & Plan: He had MINDI with Dr. Gutierrez on 08/15/18 and appears to have tolerated well. He has had alcohol withdrawal post-op, which has complicated his rehab. He is on Lovenox for DVT prophylaxis. (2) HTN (hypertension) Status: Chronic Assessment & Plan: He does take amlodipine chronically. This has been restarted 08/20. (3) Asthma Status: Chronic Assessment & Plan: Will continue his Advair. He does not appear to have any acute problems at this time. (4) Alcohol abuse Status: Acute Assessment & Plan: Improving. He reports he drinks a 6 pack of beer daily - I suspect it is probably more. He is on CIWA protocol and has been receiving benzodiazepines. He is also getting B vitamins. Continue to monitor. (5) TBI (traumatic brain injury) Status: Chronic Assessment & Plan: It is reported the patient has a TBI. However, the patient is a poor historian and cannot confirm details of injury. His left arm has minimal function and use. He wears a sling at home. (6) Decreased alertness Status: Acute Assessment & Plan: He had an episode of decreased alertness and decreased respirations. He was given Narcan and the patient did resume better respirations and alertness. He will get a head CT and labs to assess ammonia also. Exam Sepsis Risk: No Definite Risk Problem Qualifiers (1) Hip fracture, right: Encounter type: initial encounter Fracture type: closed Qualified Codes: S72.001A - Fracture of unspecified part of neck of right femur, initial encount er for closed fracture SUSAN WADE Aug 21, 2018 14:05
--- NOTE | 2018-08-21 14:14 | RADIOLOGY IMAGING REPORT ---
FACILITY: [facility] PATIENT NAME: Jhoan Menezes : 1960 MR: [id number] V: [id number] EXAM DATE: ORDERING PHYSICIAN: SUSAN WADE TECHNOLOGIST: Location: [facility] Patient: Jhoan Menezes : 1960 Visit/Account:[id number] Date of Sevice: 08/21/[address] scan without contrast COMPARISONS: None ADDITIONAL PERTINENT HISTORY: Altered mental status TECHNIQUE: Multiple axial images were obtained from the skull base to the vertex without IV contrast . One of the following dose optimization techniques was utilized in the performance of this exam: Aut omated exposure control; adjustment of the mA and/or kV according to the patient's size; or use of an iterative reconstruction technique. Specific details can be referenced in the facility's radiology CT exam operational policy. FINDINGS: Midline shift: Negative Ventricles: Mild enlargement of the lateral and third ventricles. Otherwise negative Brain parenchyma: Patchy hypoattenuation within the periventricular and subcortical white matter, no nspecific but likely representing small vessel ischemic change on a chronic basis. No intraparenchyma l hemorrhage or mass effect. Extra-axial spaces: Mild cerebral atrophy. Intracranial vasculature: Cavernous internal carotid and distal vertebral artery calcifications. Oth erwise negative Osseous structures: Negative Paranasal sinuses and mastoid air cells: Mild mucosal thickening involving the right maxillary sinus . Surrounding soft tissues and orbits: Negative IMPRESSION: 1. Age related changes as described above. 2. No evidence of acute intracranial pathology. 3. Underlying paranasal sinus disease. Report Dictated By: Elroy Peña MD at 08/21/2018 2:07 PM Report E-Signed By: Elroy Peña MD at 08/21/2018 2:10 PM [email or web address]
[2018-08-21] MEDS: SALMETEROL/FLUTIC 250/50 1 INH INH SCH ×2 (17:01→18:00)
[2018-08-22] MEDS: SALMETEROL/FLUTIC 250/50 1 INH INH SCH ×2 (05:45→17:16)
[2018-08-22 07:57] VITALS: BP 128/87
[2018-08-22] MEDS: NICOTINE 14 MG/24 HR PATCH TD SCH (08:59)
[2018-08-22] MEDS: POLYETHYLENE GLYCOL 17 GM PKT PO SCH (08:59)
[2018-08-22] MEDS: FOLIC ACID/CYANOCOB/PYRIDOXINE PO SCH (08:59)
[2018-08-22] MEDS: ENOXAPARIN 40 MG/0.4ML SYR SC SCH (09:00)
[2018-08-22] MEDS: amLODIPine BESYL(*) 5 MG TAB PO SCH (09:00)
[2018-08-22] MEDS: THIAMINE HCL 100 MG TAB PO SCH (09:00)
[2018-08-22] MEDS: DOCUSATE SODIUM 100 MG CAP PO SCH ×2 (09:00→21:39)
[2018-08-22] MEDS: oxyCODONE HCL 5 MG CAP PO PRN ×2 (09:00→18:12)
--- NOTE | 2018-08-22 10:37 | Hospitalist Progress Note ---
Subjective Progress Notes Subjective He is awake and alert. He states he is ready to "get moving". Physical Exam Vital Signs Date Time Temp Pulse Resp B/P (MAP) Pulse Ox O2 Delivery O2 Flow Rate FiO2 08/22/18 09:00 94 Nasal Cannula 1.0 08/22/18 07:57 97.8 94 20 128/87 (101) Intake and Output 08/22/18 07:00 Intake Total 1022 ml Output Total 600 ml Balance 422 ml Intake Oral 1022 ml Output Urine Total 600 ml # Voids 1 General Appearance: Alert, Awake (responds slowly) Neuro: Other (left upper extremity paresis - chronic) Cardiovascular: Regular Rate and Rhythm Respiratory: Clear to Auscultation GI: Soft and Non-Tender Extremities: Warm, Perfused Result Diagram: 08/21/18 1341 08/21/18 1341 Assessment and Plan Problems: (1) Hip fracture, right Status: Acute Assessment & Plan: He had MINDI with Dr. Gutierrez on 08/15/18 and appears to have tolerated well. He has had alcohol withdrawal post-op, which has complicated his rehab. He is on Lovenox for DVT prophylaxis. (2) HTN (hypertension) Status: Chronic Assessment & Plan: He does take amlodipine chronically. This has been restarted 08/20. Monitor BPs. (3) Asthma Status: Chronic Assessment & Plan: We have continued his Advair. He does not appear to have any acute problems at this time. (4) Alcohol abuse Status: Acute Assessment & Plan: Improving/resolved. He reported he drinks a 6 pack of beer daily - suspect it is probably more. He was on CIWA protocol and had been re ceiving benzodiazepines. He is getting B vitamins. Continue to monitor. (5) TBI (traumatic brain injury) Status: Chronic Assessment & Plan: It is reported the patient has a TBI. However, the patient is a poor historian and cannot confirm details of injury. His left arm has minimal function and use. He wears a sling at home. (6) Decreased alertness Status: Acute Assessment & Plan: He had an episode of decreased alertness and decreased respirations. He was given Narcan and the patient did resume better respirations and alertness. Head CT unremarkable. Labs show minimal elevation of ammonia otherwise unremarkable. Exam Sepsis Risk: No Definite Risk Problem Qualifiers (1) Hip fracture, right: Encounter type: initial encounter Fracture type: closed Qualified Codes: S72.001A - Fracture of unspecified part of neck of right femur, initial encounter for closed fracture SALMA BASILIO MD Aug 22, 2018 10:37
[2018-08-22 13:09] VITALS: BP 118/98
[2018-08-22 15:34] VITALS: BP 118/90
[2018-08-22] MEDS ORDERED: COLCHICINE 0.6 MG TAB PO ONE ×2 (19:30→22:00)
[2018-08-22 21:51] VITALS: BP 125/75
[2018-08-23] MEDS: oxyCODONE HCL 5 MG CAP PO PRN (03:39)
[2018-08-23 03:41] VITALS: BP 139/89
[2018-08-23 05:35] LABS: PLATELET COUNT, AUTOMATED 312 K/uL (150-450)
[2018-08-23 05:38] LABS: INR 1.02
[2018-08-23] MEDS: SALMETEROL/FLUTIC 250/50 1 INH INH SCH (05:49)
[2018-08-23 08:33] VITALS: BP 133/91
[2018-08-23] MEDS ORDERED: BISACODYL 10 MG SUPP PR PRN ×2 (09:05→09:10)
[2018-08-23] MEDS: amLODIPine BESYL(*) 5 MG TAB PO SCH (09:22)
[2018-08-23] MEDS: THIAMINE HCL 100 MG TAB PO SCH (09:22)
[2018-08-23] MEDS: POLYETHYLENE GLYCOL 17 GM PKT PO SCH (09:22)
[2018-08-23] MEDS: DOCUSATE SODIUM 100 MG CAP PO SCH (09:30)
[2018-08-23] MEDS: ENOXAPARIN 40 MG/0.4ML SYR SC SCH (09:30)
[2018-08-23] MEDS: NICOTINE 14 MG/24 HR PATCH TD SCH (09:31)
--- NOTE | 2018-08-23 09:39 | Hospitalist Depart ---
Discharge Summary Reason for Hosp/Final Diag: (1) Hip fracture, right Status: Acute Hospital Course & Plan: He had MINDI with Dr. Gutierrez on 08/15/18 and appears to have tolerated well. He has had alcohol withdrawal post-op, which has complicated his rehab. He is on Lovenox for DVT prophylaxis. (2) HTN (hypertension) Status: Chronic Hospital Course & Plan: He does take amlodipine chronically. (3) Asthma Status: Chronic Hospital Course & Plan: We have continued his Advair. He does not appear to have any acute problems at this time. (4) Alcohol abuse Status: Acute Hospital Course & Plan: He did suffer withdrawal symptoms. We did have him on CIWA protocol, but his symptoms have now resolved. (5) TBI (traumatic brain injury) Status: Chronic Hospital Course & Plan: It is reported the patient has a TBI. However, the patient is a poor historian and cannot confirm details of injury. His left arm has minimal function and use. He wears a sling at home. (6) Decreased alertness Status: Acute Hospital Course & Plan: He had an episode of decreased alertness and decreased respirations. He was given Narcan and the patient did resume better respirations and alertness. Head CT unremarkable. Labs show minimal elevation of ammonia otherwise unremarkable. Departure Latest Vital Signs Vital Signs 08/23/18 08/23/18 08/23/18 03:41 08:33 08:37 Temp 98.2 Pulse 96 Resp 12 B/P (MAP) 133/91 (105) Pulse Ox 83 O2 Delivery Room Air O2 Flow Rate 1.0 Weight (Pounds): 148 Weight (Ounces): 6.0 Result Diagram: 08/23/1852308/23/18523 Condition: Improved PT/OT Follow Up For: PT Evaluation and Treat, OT Evaluation and Treat Discharge Instructions Home Meds Reported Medications Naproxen Sodium (Naproxen Sodium ER) 500 Mg Tbmp.24hr, 1 CAP PO 1-2XD PRN for PAIN 08/16/18 Amlodipine Besylate (AMLODIPINE BESYLATE) 10 Mg Tablet, 1 TAB PO QDAY, TAB 08/16/18 Fluticasone/Salmeterol (ADVAIR 100-50 DISKUS) 1 Each Disk.w.dev, 1 EACH IH 08/14/18 Discontinued Reported Medications [blood pressure med] No Conflict Check 08/14/18 Naproxen Sodium (ALEVE) 220 Mg Capsule, 220 MG PO TID, CAPSULE 08/14/18 Diet: Regular Activity: As Tolerated Venous Thromboembolism Antithrombotics Is Pt On Any Antithrombotics?: No (due to upcoming procedure) Problem Qualifiers (1) Hip fracture, right: Encounter type: initial encounter Fracture type: closed Qualified Codes: S72.001A - Fracture of unspecified part of neck of right femur, initial encounter for closed fracture (2) HTN (hypertension): Hypertension type: essential hypertension Qualified Codes: I10 - Essential (primary) hypertension TOMAS HOOPER DO Aug 23, 2018 09:39
--- NOTE | 2018-08-23 09:43 | RADIOLOGY IMAGING REPORT ---
FACILITY: [facility] [place] PATIENT NAME: Jhoan Menezes : 1960 MR: [id number] V: [id number] EXAM DATE: ORDERING PHYSICIAN: TOMAS HOOPER TECHNOLOGIST: Location: [facility] Patient: Jhoan Menezes : 1960 Visit/Account:[id number] Date of Sevice: 08/23/2018 Exam type: KUB SINGLE VIEW ABDOMEN History: Constipation Comparison: Hip x-ray 08/15/2018. Findings: Bowel gas pattern is notable for constipation. No evidence for bowel obstruction or free air. Soft tissues are otherwise unremarkable. The osseous structures junction a right hip arthroplasty. Large exostosis extending from the right il iac crest is unchanged from prior exam. IMPRESSION: 1. Constipation but no definite bowel obstruction or free air. 2. Right iliac wing exostosis is unchanged from prior exam Report Dictated By: Alan Watson MD at 08/23/2018 9:35 AM Report E-Signed By: Alan Watson MD at 08/23/2018 9:38 AM WSN:[id number]
[2018-08-23] MEDS: FOLIC ACID/CYANOCOB/PYRIDOXINE PO SCH (09:58)
[2018-08-23] MEDS ORDERED: OXYC5TAB38 PO (11:31)
== END 2018-08-23 13:10 | DRG 470 ==
LOC: ER 17:45 → MED 20:56
PROVIDERS: ADMIT Orthopaedic Surgery; ATTEND Orthopaedic Surgery
PROC: 0SR904Z Replacement of Right Hip Joint with Ceramic on Polyethylene Synthetic Substitute, Open Approach (ICD-10-PCS; principal; 2018-08-14)
DX: S72.011A Unspecified intracapsular fracture of right femur, initial encounter for closed fracture (principal); F10.230 Alcohol dependence with withdrawal, uncomplicated; J45.909 Unspecified asthma, uncomplicated; I10 Essential (primary) hypertension; R41.82 Altered mental status, unspecified; F17.220 Nicotine dependence, chewing tobacco, uncomplicated; W17.89XA Other fall from one level to another, initial encounter; Y92.008 Other place in unspecified non-institutional (private) residence as the place of occurrence of the external cause; Y99.8 Other external cause status; Z88.8 Allergy status to other drugs, medicaments and biological substances; Z98.1 Arthrodesis status; Z87.820 Personal history of traumatic brain injury
CPT/HCPCS: 36415; 36600; 70450; 71045; 72170; 74018; 81001; 82040; 82140; 82247; 82310; 82374; 82435; 82565; 82803; 82947; 84075; 84132; 84155; 84295; 84450; 84460; 84520; 84550; 85014; 85018; 85025; 85610; 86850; 86900; 86901; 93005; 94640; 97162; 97166; C1713; C1776; J0171; J0690; J0735; J1100; J1170; J1650; J1885; J2001; J2060; J2310; J2405; J2704; J2795; J3010; J3360; J3480; J3490; J7050; J7060

== ENCOUNTER 2018-08-23 13:10 | Inpatient (IN) | payer SELFPAY ==
[~2018-08-23] VITALS: Ht 175.3 cm; Wt 61.7 kg
[2018-08-23 11:30] VITALS: BP 136/84
[~2018-08-23 13:10] MED LIST changes: +AMLO-113 PO; +FLUT1DIS27 IH; +NAPR-417 PO; +NAPR220C12 PO; +OXYC5TAB38 PO; +blood pressure med
[2018-08-23] MEDS ORDERED: BISACODYL 10 MG SUPP PR PRN (14:22)
[2018-08-23] MEDS ORDERED: MAGNESIUM HYDROXIDE* 30ML UDCP PO PRN (14:22)
[2018-08-23] MEDS ORDERED: oxyCODONE HCL 5 MG CAP PO PRN (14:22)
[2018-08-23] MEDS ORDERED: NALOXONE HCL 0.4 MG/ML VIAL IVP PRN (14:23)
--- NOTE | 2018-08-23 14:31 | PT ECF NOTE ---
Type of Note: Initial Note Primary Medical Diagnosis: s/p R MINDI due to fracture: WBAT with posterior hip precautions Physical Therapy Evaluation Date: 08/23/18 SUBJECTIVE: Prior Hospitalization: Please see [facility] for Med/Surg records - recovery complicated due to ETOH withdraw Prior Level of Function: Independent with functional mobility. Prior Living Status: Single level house, Alone Community Services: No known needs Home Accessibility: 2 Stairs with rails Equipment Owned: unknown at time of eval Medical Complications/Past Medical History: Please see [facility]. R UE weakness/decreased ROM. Psychosocial Support: unknown Pain Scale (0-10): Pt reporting significant R hip and foot pain with all movement. OBJECTIVE: Strength: not appropriate to evaluate due to pain. L UE at most 1/5 strength Bed Mobility: total assist x 3 people Assistive device: Bed rail, Head of bed elevated Transfers: Total assistance x3 to attempt to stand into EZ lift. Pt unable to stand. ASSESSMENT: Pt presents with significant decrease in independence with functional mobility s/p R hip fx and repair with MINDI. Pt will require skilled PT for functional mobility training in order to return to prior level of function which is independent with functional mobility. Of note is Pt's decreased L UE function with at maximum 1/5 strength and poor trunk control. Pt demonstrates a significant L lean and Min A to maintain upright sitting. Pt has had a brain CT scan with negative results. Problem List/Current Limitations: Pain, Decreased activity tolerance, Decreased strength, Decreased ROM, Decreased coordination, Decreased balance, Generalized weakness, Abnormal tonal influence, Poor trunk/head control, Poor safety awareness, Memory deficits Short Term Goals: 1. Mod I bed mobility. 2. Mod I transfers. 3. Mod I gait x 50' with RW. 4. Ascend/descend 2 stairs SBA. 5. Independent with hip precautions. Long-Term Goals: Return to prior level of function. Patient Goals: Return to prior level of function. Rehabilitation Prognosis: Fair Barriers for Discharge: Slow recovery thus far. PLAN: The patient will benefit from skilled physical therapy services 5 times per week for 2 weeks including: Therapeutic Exercise, Therapeutic Activities, Transfer Training, Gait Training, Stair Training, Manual Therapy, ADL's, Safety Training, Neuromuscular Re-educ., Wound Care, Pt/Caregiver training, Bed Mobility Thank you for this referral. If you have any questions, concerns, or comments about this report or plan, please contact me at . Geri Spencer, PT, DPT, GCS MTDD
--- NOTE | 2018-08-23 14:43 | Consultant Pharmacy Review ---
[employer] Review Medication Review Do All Mecications have a Diag: Yes (Patient is 58 years old and does not meet Beers criteria age.) Other General Cautions * * * * Print * Help Lexicomp Interaction Analysis A = No known interaction C = Monitor therapy X = Avoid combination B = No action needed D = Consider therapy modification Drugs in this analysis: Advair Diskus; Bisacodyl; Docusate; Folbee; Lovenox; Magnesium Hydroxide; MiraLax [OTC]; Naloxone; Nicoderm CQ [OTC]; Norvasc; OxyCODONE; Thiamine * Drug-Drug Interactions * D Bisacodyl Magnesium Hydroxide (Antacids) C Magnesium Hydroxide (Magnesium Salts) Norvasc (Calcium Channel Blockers) Pneumococcal Vaccine HX Pneumo Vac ([id number]): No MANGO CARDOSO Aug 23, 2018 14:43
[2018-08-23] MEDS: oxyCODONE HCL 5 MG CAP PO PRN ×2 (14:48→20:24)
[2018-08-23 16:30] VITALS: BP 124/86
--- NOTE | 2018-08-23 16:54 | OT ECF NOTE ---
Type of Note: Initial Note Primary Medical Diagnosis: Generalized weakness s/p R MINDI due to fracture: WBAT with posterior hip precautions Occupational Therapy Evaluation Date: 08/23/18 SUBJECTIVE: Prior Hospitalization: Please see [facility] for Med/Surg records - recovery complicated due to ETOH withdraw Prior Level of Function: Independent with ADLs. Level of independence with IADLs not reported at this time. Prior Living Status: Single level house, Alone Community Services: No known needs Home Accessibility: Stairs with rails, All needs on one level Equipment Owned: Not addressed at this time Medical Complications/Past Medical History: Please refer to EMR Psychosocial Support: Niece that resides in [place]. Otherwise, unknown. Pain Scale (0-10): Pt report significant pain in right hip and foot with all movement. No numerical rating provided. OBJECTIVE: Strength: MMT: Right Left Shoulder Flexion WFL 1/5 Elbow Flexion WFL 1/5 Wrist Extension WFL 1/5 Medical/Surgery Registered Nurse WFL 1/5 (5= normal, 4= good, 3= fair, 2= poor, 1= trace) ROM: Left, Severely limited. Pt reports having a simple sling that he typically dons at all times. Functional Transfer: Assistive Device: EZ/Patient assisted lift Transfer Ability: 2-person assist Maximum assistance Total assistance Max Ax1-2 to maintain upright posture seated EOB ADL: Upper body dressing: Assistive device: Upper body dressing ability: Total assistance Lower body dressing: Assistive device: Lower body dressing ability: Total assistance Toileting: Assistive device: Toileting ability: Total assistance Grooming/hygiene: Assistive device: Grooming ability: N/T Bathing: Assistive device: Bathing ability: N/T Standardized Assessment: Denys Index of Activities of Daily Livin/20 upon initial evaluation (08/23/18). ASSESSMENT: Prior to admission, Jhoan was living alone in a single level home. Currently, he is dependent for all ADLs and requiring Total Ax2-3 for partial sit<>stands in EZ lift. He will benefit from skilled OT services to improve tolerance and optimize (I) with ADLs. Problem List/Current Limitations: Pain Decreased activity tolerance Decreased strength Decreased ROM Decreased balance Generalized weakness Abnormal tonal influence Poor safety awareness Decreased problem solving Decreased initiation Confusion Short Term Goals: 1) Pt will be Min A UB/LB dressing. 2) Pt will be Min A grooming/hygiene. 3) Pt will be Mod A toilet task. 4) Pt will be Mod A shower task. 5) Pt Denys Index of ADLs score will improve by 2 points. Auto Body Repair Teacher Goals: Return to PLOF Patient Goals: Return home Rehabilitation Prognosis: Good Barriers to Discharge: Pain, Slow progression since medical floor PLAN: The patient will benefit from skilled occupational therapy services 5 times per week for 2 weeks including: Ther ex ADL training Safety training Ther act IADL training Transfer training Adaptive equip training Bed mobility Energy conservation Thank you for this referral. If you have any questions, concerns, or comments about this report or plan, please contact me at . Sandi Martin MS, OTR/L Occupational Therapist [facility]
[2018-08-23] MEDS: SALMETEROL/FLUTIC 250/50 1 INH INH SCH (18:06)
[2018-08-23] MEDS: COLCHICINE 0.6 MG TAB PO SCH (20:24)
[2018-08-23] MEDS: DOCUSATE SODIUM 100 MG CAP PO SCH (20:24)
[2018-08-24] VITALS (17 sets, daily range): BP systolic 119–146; BP diastolic 51–85; Ht 175.3 cm; Wt 61.7 kg
[2018-08-24] MEDS: oxyCODONE HCL 5 MG CAP PO PRN ×4 (03:34→21:03)
[2018-08-24] MEDS: amLODIPine BESYL(*) 5 MG TAB PO SCH (08:49)
[2018-08-24] MEDS: FOLIC ACID/CYANOCOB/PYRIDOXINE PO SCH (08:57)
[2018-08-24] MEDS: DOCUSATE SODIUM 100 MG CAP PO SCH ×2 (08:57→21:03)
[2018-08-24] MEDS: ENOXAPARIN 40 MG/0.4ML SYR SC SCH (08:57)
[2018-08-24] MEDS: THIAMINE HCL 100 MG TAB PO SCH (08:57)
[2018-08-24] MEDS: COLCHICINE 0.6 MG TAB PO SCH ×2 (08:57→21:03)
[2018-08-24] MEDS: POLYETHYLENE GLYCOL 17 GM PKT PO SCH (09:00)
[2018-08-24] MEDS: NICOTINE 14 MG/24 HR PATCH TD SCH (09:00)
--- NOTE | 2018-08-24 09:43 | Medical Nutrition Therapy ---
Nutrition Anthropometrics Height (Inches): 69.00 Height (Calculated Centimeters: 175.966858 Weight (Pounds): 124 Weight (Calculated Kilograms): 56.416 Ata Nutrition Score: Probably Inadequate Ata Nutrition Risk Score: 14 Dietary Referral Nutrition Risk Factors: Nutrition Risk Comment: Physical Findings Physical Appearance: Underweight BMI<19 Skin Appearance Skin Appearance: Edema Edema Location Modifier: Right Edema Location: Foot Type of Edema: Degree of Edema: Gastrointestinal Symptoms GI Symtoms: Constipation Tube Present: Bowel Sounds: Recent Bowel Pattern: Constipated Stool Characteristics: Nutritional Diagnosis Nutritional Risk Acuity 2: Unintended Wt Loss >5%/mo, %IBW 75-80% Nutritional Risk Acuity 3: Nausea, Alcohol abuse Nutritional Acuity: 2-Moderate Nutrition Diagnosis: Inadequate Food Intake Nutrition Etiology: Physiological Causes Nutrition Problem/Etiology/Sym: AEB intake averaging 26% past 4 days Energy Requirement: 1800 (M- StJ) Protein Requirement: 56 (1gm/kg) Fluid Requirement: 1680 (30ml/kg) Diet Type: Diet as Tolerated SURY/REG Nutrition Intervention: Cont diet as ordered, Encourage intake, HS snack, Between meal supplement Additional Diet Restrictions: OFFER NUTR SUPPLMENTS Nutrition Monitoring & Eval Nutrition Goals: Eat 75-100% Meal RD Patient Assessment Time: [address] Assessment Type: RD Assessment Patient Nutrition Acuity: 2-Moderate Follow Up Date: Aug 28, 2018 Nutritional Comment: 08/24 Pt admitted s/p hip fx. Pt had alcohol withdrawls with decreased intake on medical unit. Wt on Aug 14 148#. Current wt 124#. Pt stated his usual wt was 130#. Question 24# wt loss in 10 days discpite a poor intake as that would mean a kcal deficit of 8400 kcal/day. wt loss may be r/t fulid loss and/or error or difference in scale. Will cont to monitor wt. Current wt places pt at 78% IBWR. Will offer nutr supplments to increase kcal and and protein intake. Alb 2.9. Pt cont lethargic which may affect nutritional intake. MANSI HERRMANN Aug 24, 2018 09:15
--- NOTE | 2018-08-24 12:56 | RADIOLOGY IMAGING REPORT ---
FACILITY: [facility] PATIENT NAME: Jhoan Menezes : 1960 MR: [id number] V: [id number] EXAM DATE: ORDERING PHYSICIAN: MACO ADLER TECHNOLOGIST: Location: [facility] Patient: Jhoan Menezes : 1960 Visit/Account:[id number] Date of Sevice: 08/24/2018 HIP RIGHT Indication: Recent fall with right hip replacement. Comparison: August 15, 2018. Findings: There is no acute fracture or dislocation of the right hip. Right hip arthroplasty without visualized hardware complication. The hip is an articulating alignmen t. Unchanged chronic deformity of the right iliac crest. Moderate degenerative changes noted within the lower lumbar spine. IMPRESSION: 1. No acute osseous abnormality right hip as above Report Dictated By: Calderon Mclean MD at 08/24/2018 12:50 PM Report E-Signed By: Calderon Mclean MD at 08/24/2018 12:51 PM WSN:[id number]
[2018-08-24] MEDS: SALMETEROL/FLUTIC 250/50 1 INH INH SCH (17:40)
[2018-08-25] VITALS (16 sets, daily range): BP systolic 115–150; BP diastolic 72–94
[2018-08-25] MEDS: oxyCODONE HCL 5 MG CAP PO PRN ×3 (04:24→18:35)
[2018-08-25] MEDS: POLYETHYLENE GLYCOL 17 GM PKT PO SCH (10:01)
[2018-08-25] MEDS: FOLIC ACID/CYANOCOB/PYRIDOXINE PO SCH (10:02)
[2018-08-25] MEDS: ENOXAPARIN 40 MG/0.4ML SYR SC SCH (10:02)
[2018-08-25] MEDS: COLCHICINE 0.6 MG TAB PO SCH ×2 (10:02→21:25)
[2018-08-25] MEDS: THIAMINE HCL 100 MG TAB PO SCH (10:02)
[2018-08-25] MEDS: DOCUSATE SODIUM 100 MG CAP PO SCH ×2 (10:02→21:25)
[2018-08-25] MEDS: amLODIPine BESYL(*) 5 MG TAB PO SCH (10:02)
[2018-08-25] MEDS: NICOTINE 14 MG/24 HR PATCH TD SCH (10:03)
--- NOTE | 2018-08-25 10:10 | RADIOLOGY IMAGING REPORT ---
FACILITY: [facility] [place] PATIENT NAME: Jhoan Menezes : 1960 MR: [id number] V: [id number] EXAM DATE: ORDERING PHYSICIAN: AVIVA PURDY TECHNOLOGIST: Location: [facility] [place] Patient: Jhoan Menezes : 1960 Visit/Account:[id number] Date of Sevice: 08/25/2018 HIP RIGHT AP COMPARISONS: Views of the right hip dated August 24, 2018 ADDITIONAL PERTINENT HISTORY: Recent fall FINDINGS: Osseous structures: Patient status post previous right total hip arthroplasty. No bony fractures. Het erotopic ossification extending off the lateral aspect of the right iliac wing. Spondylitic change in volving the lower lumbar spine. Joint spaces: Components of the right hip arthroplasty in good position. Surrounding soft tissues: Negative. IMPRESSION: 1. Patient status post previous total right hip arthroplasty. 2. No acute appearing bony abnormalities. Report Dictated By: Elroy Peña MD at 08/25/2018 10:05 AM Report E-Signed By: Elroy Peña MD at 08/25/2018 10:07 AM WSN:[id number]
[2018-08-25] MEDS: SALMETEROL/FLUTIC 250/50 1 INH INH SCH (18:30)
[2018-08-26] MEDS: oxyCODONE HCL 5 MG CAP PO PRN ×5 (02:39→22:57)
[2018-08-26 02:45] VITALS: BP 140/80
[2018-08-26] MEDS: SALMETEROL/FLUTIC 250/50 1 INH INH SCH ×2 (05:21→17:34)
[2018-08-26 07:56] VITALS: BP 127/78
[2018-08-26] MEDS: NICOTINE 14 MG/24 HR PATCH TD SCH (08:47)
[2018-08-26] MEDS: DOCUSATE SODIUM 100 MG CAP PO SCH ×2 (08:48→21:00)
[2018-08-26] MEDS: COLCHICINE 0.6 MG TAB PO SCH ×2 (08:48→21:12)
[2018-08-26] MEDS: POLYETHYLENE GLYCOL 17 GM PKT PO SCH (08:48)
[2018-08-26] MEDS: FOLIC ACID/CYANOCOB/PYRIDOXINE PO SCH (08:48)
[2018-08-26] MEDS: THIAMINE HCL 100 MG TAB PO SCH (08:48)
[2018-08-26] MEDS: amLODIPine BESYL(*) 5 MG TAB PO SCH (08:49)
[2018-08-26] MEDS: ENOXAPARIN 40 MG/0.4ML SYR SC SCH (08:49)
[2018-08-26] MEDS ORDERED: IBUP-136 PO (13:50)
[2018-08-26] MEDS ORDERED: ASPI-1017 PO (13:50)
[2018-08-26] MEDS: CYCLOBENZAPRINE HCL 10 MG TAB PO PRN ×2 (15:18→23:20)
[2018-08-26 15:56] VITALS: BP 112/81
[2018-08-26 22:56] VITALS: BP 138/79
[2018-08-27] MEDS: oxyCODONE HCL 5 MG CAP PO PRN ×5 (02:59→21:21)
[2018-08-27] MEDS: SALMETEROL/FLUTIC 250/50 1 INH INH SCH ×2 (06:31→17:13)
[2018-08-27] MEDS: CYCLOBENZAPRINE HCL 10 MG TAB PO PRN ×2 (08:04→16:28)
[2018-08-27 08:10] VITALS: BP 124/77
[2018-08-27] MEDS: POLYETHYLENE GLYCOL 17 GM PKT PO SCH (08:40)
[2018-08-27] MEDS: NICOTINE 14 MG/24 HR PATCH TD SCH (08:40)
[2018-08-27] MEDS: COLCHICINE 0.6 MG TAB PO SCH ×2 (08:40→21:21)
[2018-08-27] MEDS: THIAMINE HCL 100 MG TAB PO SCH (08:41)
[2018-08-27] MEDS: ENOXAPARIN 40 MG/0.4ML SYR SC SCH (08:41)
[2018-08-27] MEDS: DOCUSATE SODIUM 100 MG CAP PO SCH ×2 (08:41→21:21)
[2018-08-27] MEDS: amLODIPine BESYL(*) 5 MG TAB PO SCH (08:41)
[2018-08-27] MEDS: FOLIC ACID/CYANOCOB/PYRIDOXINE PO SCH (08:41)
[2018-08-27] MEDS ORDERED: ALBU8.5H IH (12:36)
[2018-08-27] MEDS ORDERED: FLUT1DIS28 IH (12:36)
[2018-08-27 16:50] VITALS: BP 134/91
[2018-08-28] MEDS: CYCLOBENZAPRINE HCL 10 MG TAB PO PRN ×3 (01:25→21:00)
[2018-08-28 03:00] VITALS: BP 129/83
[2018-08-28] MEDS: oxyCODONE HCL 5 MG CAP PO PRN ×5 (04:10→23:30)
[2018-08-28] MEDS: SALMETEROL/FLUTIC 250/50 1 INH INH SCH ×2 (07:49→17:26)
[2018-08-28] MEDS: NICOTINE 14 MG/24 HR PATCH TD SCH (08:44)
[2018-08-28] MEDS: FOLIC ACID/CYANOCOB/PYRIDOXINE PO SCH (08:44)
[2018-08-28] MEDS: THIAMINE HCL 100 MG TAB PO SCH (08:44)
[2018-08-28] MEDS: DOCUSATE SODIUM 100 MG CAP PO SCH ×2 (08:44→21:00)
[2018-08-28] MEDS: COLCHICINE 0.6 MG TAB PO SCH ×2 (08:44→21:00)
[2018-08-28] MEDS: ENOXAPARIN 40 MG/0.4ML SYR SC SCH (08:44)
[2018-08-28] MEDS: POLYETHYLENE GLYCOL 17 GM PKT PO SCH (08:44)
[2018-08-28] MEDS: amLODIPine BESYL(*) 5 MG TAB PO SCH (08:47)
--- NOTE | 2018-08-28 09:58 | HISTORY AND PHYSICAL ---
DATE OF SERVICE: August 15, 2018 ADMISSION DIAGNOSIS Right hip fracture. HISTORY OF PRESENT ILLNESS Mr. Menezes is a 58-year-old male who unfortunately slipped and fell about a foot off his front porch on the late evening of August 14, 2018. He was seen in the emergency room and found to have a displaced femoral neck fracture and was admitted to the orthopedic service with hospitalist consultation. He denies any numbness, tingling, no other complaints but does have right sided hip pain. PAST MEDICAL HISTORY * Significant for asthma. * Hypertension. PAST SURGICAL HISTORY * Cervical spine surgery with right iliac crest bone graft by Dr. Magana. * Right forearm surgery. ALLERGIES TYLENOL CURRENT MEDICATIONS * Advair * Blood pressure medication SOCIAL HISTORY Admits to chewing tobacco about a can per day. Admits to heavy alcohol use with a 6 pack plus per day. He does live at home and is currently seeking disability for arm dysfunction. PHYSICAL EXAMINATION On examination cervical spine demonstrates well healed incisions, limited range of motion. Right upper extremity demonstrating a well healed previous incision, radial, medial ulnar nerves are intact. Right hip does demonstrate internal rotation and shortening, general range of motion and log roll causes pain. He is nontender over the distal femur and knee. Plantar flexion, dorsiflexion, intact. Brisk capillary refills in his digits. Sensation, nerves are intact. LABORATORY DATA WBC 7.2, hematocrit 42.7, hemoglobin 14.9, platelets 247,000. INR is 0.98. Urinalysis is negative. X-rays from the emergency room do demonstrate a displaced femoral neck fracture on the right side. There are postoperative changes on the iliac crest from his previous bone grafting. ASSESSMENT This is a 58-year-old male with acute displaced femoral neck fracture. PLAN At this point, we have discussed risks, benefits, alternatives, possible complications of surgical and nonsurgical intervention with Mr. Menezes and at this stage he would like to proceed with surgery. He is going to proceed with surgery with Dr. Gutierrez for a total hip arthroplasty on the right hip this evening. D/T: [id number] [facility]/ H&P ADDENDUM The above issues are resolving. Patient requires usp care and/or skilled rehabilitation. Patient is ready for transfer to [facility]. Any change in condition is described below. MTDD
--- NOTE | 2018-08-28 10:56 | Medical Nutrition Therapy ---
Nutrition Anthropometrics Height (Inches): 69.00 Height (Calculated Centimeters: 175.209673 Weight (Pounds): 124 Weight (Calculated Kilograms): 56.416 Ata Nutrition Score: Very Poor Ata Nutrition Risk Score: 11 Dietary Referral Nutrition Risk Factors: Nutrition Risk Comment: Physical Findings Physical Appearance: Underweight BMI<19 Skin Appearance Skin Appearance: Edema Edema Location Modifier: Left Edema Location: Foot Type of Edema: Degree of Edema: 1+ Gastrointestinal Symptoms GI Symtoms: Constipation Tube Present: Bowel Sounds: Recent Bowel Pattern: Constipated Stool Characteristics: Nutritional Diagnosis Nutritional Risk Acuity 2: Unintended Wt Loss >5%/mo, %IBW 75-80% Nutritional Risk Acuity 3: Nausea, Alcohol abuse Nutritional Acuity: 2-Moderate Nutrition Diagnosis: Inadequate Food Intake Nutrition Etiology: Physiological Causes Nutrition Problem/Etiology/Sym: AEB intake averaging 26% past 4 days Energy Requirement: 1800 (M- StJ) Protein Requirement: 56 (1gm/kg) Fluid Requirement: 1680 (30ml/kg) Diet Type: Diet as Tolerated SURY/REG Nutrition Intervention: Cont diet as ordered, Encourage intake, HS snack, Between meal supplement Additional Diet Restrictions: OFFER NUTR SUPPLMENTS AND PUT PRO POWDER IN APPROPRIATE FOODS Nutrition Monitoring & Eval RD Patient Assessment Time: [address] Assessment Type: RD Re-Assessment Patient Nutrition Acuity: 2-Moderate Follow Up Date: Sep 04, 2018 Nutritional Comment: 08/24 Pt admitted s/p hip fx. Pt had alcohol withdrawls with decreased intake on medical unit. Wt on Aug 14 148#. Current wt 124#. Pt stated his usual wt was 130#. Question 24# wt loss in 10 days discpite a poor intake as that would mean a kcal deficit of 8400 kcal/day. wt loss may be r/t fulid loss and/or error or difference in scale. Will cont to monitor wt. Current wt places pt at 78% IBWR. Will offer nutr supplments to increase kcal and and protein intake. Alb 2.9. Pt cont lethargic which may affect nutritional intake. BK 08/28 Pt continues PT/OT for hip fx repair. No new labs since 08/23. Those abnormal labs include Na 131, glc 144, elevated liver enzymes, tot pro 6.2, alb 2.9 and low H/H. Currently on SURY with very little intake over previous few days. Staff offering nutr suppl. Will add protein powder to appropriate foods. No new wt since 08/24. Will cont to monitor and encourage intake.-CARL HERRON Aug 28, 2018 10:56
[2018-08-28] MEDS: [UNRECOGNIZED DRUG - OTHER] TP PRN (14:02)
[2018-08-28] MEDS: PETROLATUM WHITE TP PRN (14:02)
[2018-08-28 16:10] VITALS: BP 125/78
[2018-08-28] MEDS ORDERED: INFLUENZA VIRUS VAC 0.5ML SYR IM ONLY ONE (23:21)
[2018-08-29 08:30] VITALS: BP 151/89
[2018-08-29] MEDS: POLYETHYLENE GLYCOL 17 GM PKT PO SCH (08:50)
[2018-08-29] MEDS: COLCHICINE 0.6 MG TAB PO SCH ×2 (08:50→20:26)
[2018-08-29] MEDS: oxyCODONE HCL 5 MG CAP PO PRN ×3 (08:50→20:26)
[2018-08-29] MEDS: FOLIC ACID/CYANOCOB/PYRIDOXINE PO SCH (08:50)
[2018-08-29] MEDS: THIAMINE HCL 100 MG TAB PO SCH (08:50)
[2018-08-29] MEDS: ENOXAPARIN 40 MG/0.4ML SYR SC SCH (08:50)
[2018-08-29] MEDS: DOCUSATE SODIUM 100 MG CAP PO SCH ×2 (08:50→20:26)
[2018-08-29] MEDS: amLODIPine BESYL(*) 5 MG TAB PO SCH (08:51)
[2018-08-29] MEDS: NICOTINE 14 MG/24 HR PATCH TD SCH (08:51)
[2018-08-29] MEDS: SALMETEROL/FLUTIC 250/50 1 INH INH SCH ×2 (09:49→18:31)
--- NOTE | 2018-08-29 13:43 | Hospitalist Progress Note ---
Physical Exam Vital Signs Date Time Temp Pulse Resp B/P (MAP) Pulse Ox O2 Delivery O2 Flow Rate FiO2 08/29/18 10:10 92 08/29/18 09:49 Room Air 08/29/18 08:30 97.0 97 16 151/89 (109) 08/25/18 21:25 2.0 Intake and Output 08/29/18 07:00 Intake Total 390 ml Output Total 1075 ml Balance -685 ml Intake Oral 390 ml Output Urine Total 1075 ml # Voids 5 # Bowel Movements 1 Assessment and Plan Problems: (1) Hip fracture, right Status: Acute Assessment & Plan: He had a MINDI with Dr. Gutierrez on 08/15/18 and appears to have tolerated it well. He had alcohol withdrawal post-op, which has complicated his rehab. He is on Lovenox for DVT prophylaxis. (2) Headache Status: Acute Assessment & Plan: The patient states he has had a headache but no more neck stiffness than usual. He notes the only thing that helps is to sleep. Once he falls asleep the headache resolves. Suspect based on this history and his history of previous neck surgery that this is muscular. Recommended a heating pad but he declined. (3) HTN (hypertension) Status: Chronic Assessment & Plan: Continue amlodipine. Monitor BPs. He has had a few high readings. (4) Asthma Status: Chronic Assessment & Plan: Continue Advair. (5) Alcohol abuse Status: Acute Assessment & Plan: He did have withdrawal while on the medical floor. He was on CIWA at that time. His symptoms have resolved. (6) TBI (traumatic brain injury) Status: Chronic Assessment & Plan: Per the patient's PMH. The patient is a poor historian and is unable to confirm details of the injury. His left arm has minimal function and use. He does wear a sling at home. Time Spent on Plan of Care: < 30 min Problem Qualifiers (1) HTN (hypertension): Hypertension type: essential hypertension Qualified Codes: I10 - Essential (primary) hypertension MANGO BASILIO MD Aug 29, 2018 13:43
[2018-08-29] MEDS: CYCLOBENZAPRINE HCL 10 MG TAB PO PRN (15:49)
[2018-08-29 20:36] VITALS: BP 124/76
[2018-08-30] MEDS: oxyCODONE HCL 5 MG CAP PO PRN ×3 (01:47→16:28)
[2018-08-30] MEDS: CYCLOBENZAPRINE HCL 10 MG TAB PO PRN ×2 (01:47→16:29)
[2018-08-30] MEDS: SALMETEROL/FLUTIC 250/50 1 INH INH SCH ×2 (05:52→19:22)
[2018-08-30 06:34] LABS: PLATELET COUNT, AUTOMATED 489 K/uL (150-450)
[2018-08-30 08:00] VITALS: BP 134/90
[2018-08-30] MEDS: POLYETHYLENE GLYCOL 17 GM PKT PO SCH (08:48)
[2018-08-30] MEDS: DOCUSATE SODIUM 100 MG CAP PO SCH ×2 (08:49→20:36)
[2018-08-30] MEDS: COLCHICINE 0.6 MG TAB PO SCH ×2 (08:49→20:36)
[2018-08-30] MEDS: FOLIC ACID/CYANOCOB/PYRIDOXINE PO SCH (08:49)
[2018-08-30] MEDS: amLODIPine BESYL(*) 5 MG TAB PO SCH (08:49)
[2018-08-30] MEDS: NICOTINE 14 MG/24 HR PATCH TD SCH (08:49)
[2018-08-30] MEDS: THIAMINE HCL 100 MG TAB PO SCH (08:49)
[2018-08-30] MEDS: ENOXAPARIN 40 MG/0.4ML SYR SC SCH (08:49)
[2018-08-30 17:20] VITALS: BP 130/75
[2018-08-30] MEDS: [UNRECOGNIZED DRUG - OTHER] TP PRN (19:50)
[2018-08-30] MEDS: PETROLATUM WHITE TP PRN (19:50)
[2018-08-31] MEDS: oxyCODONE HCL 5 MG CAP PO PRN ×4 (01:25→18:49)
[2018-08-31] MEDS: CYCLOBENZAPRINE HCL 10 MG TAB PO PRN (05:31)
[2018-08-31] MEDS: SALMETEROL/FLUTIC 250/50 1 INH INH SCH ×2 (05:35→18:12)
[2018-08-31 08:00] VITALS: BP 125/85
[2018-08-31] MEDS: FOLIC ACID/CYANOCOB/PYRIDOXINE PO SCH (08:54)
[2018-08-31] MEDS: POLYETHYLENE GLYCOL 17 GM PKT PO SCH (08:54)
[2018-08-31] MEDS: DOCUSATE SODIUM 100 MG CAP PO SCH ×2 (08:54→20:44)
[2018-08-31] MEDS: COLCHICINE 0.6 MG TAB PO SCH ×2 (08:54→20:44)
[2018-08-31] MEDS: amLODIPine BESYL(*) 5 MG TAB PO SCH (08:54)
[2018-08-31] MEDS: NICOTINE 14 MG/24 HR PATCH TD SCH (08:55)
[2018-08-31] MEDS: ENOXAPARIN 40 MG/0.4ML SYR SC SCH (08:55)
[2018-08-31] MEDS: THIAMINE HCL 100 MG TAB PO SCH (08:56)
[2018-08-31 15:20] VITALS: BP 113/79
[2018-09-01] MEDS: CYCLOBENZAPRINE HCL 10 MG TAB PO PRN ×2 (03:20→20:29)
[2018-09-01] MEDS: oxyCODONE HCL 5 MG CAP PO PRN ×3 (03:20→18:13)
[2018-09-01] MEDS: SALMETEROL/FLUTIC 250/50 1 INH INH SCH ×2 (05:32→17:37)
[2018-09-01 07:25] VITALS: BP 136/80
[2018-09-01] MEDS: POLYETHYLENE GLYCOL 17 GM PKT PO SCH (08:35)
[2018-09-01] MEDS: DOCUSATE SODIUM 100 MG CAP PO SCH ×2 (08:36→20:29)
[2018-09-01] MEDS: amLODIPine BESYL(*) 5 MG TAB PO SCH (08:36)
[2018-09-01] MEDS: COLCHICINE 0.6 MG TAB PO SCH ×2 (08:36→20:29)
[2018-09-01] MEDS: NICOTINE 14 MG/24 HR PATCH TD SCH (08:36)
[2018-09-01] MEDS: THIAMINE HCL 100 MG TAB PO SCH (08:36)
[2018-09-01] MEDS: FOLIC ACID/CYANOCOB/PYRIDOXINE PO SCH (08:36)
[2018-09-01] MEDS: ENOXAPARIN 40 MG/0.4ML SYR SC SCH (09:00)
[2018-09-01 15:45] VITALS: BP 134/78
[2018-09-02] MEDS: oxyCODONE HCL 5 MG CAP PO PRN ×4 (02:24→23:41)
[2018-09-02] MEDS: SALMETEROL/FLUTIC 250/50 1 INH INH SCH ×2 (06:00→16:54)
[2018-09-02 07:25] VITALS: BP 118/66
[2018-09-02] MEDS: FOLIC ACID/CYANOCOB/PYRIDOXINE PO SCH (08:19)
[2018-09-02] MEDS: THIAMINE HCL 100 MG TAB PO SCH (08:19)
[2018-09-02] MEDS: POLYETHYLENE GLYCOL 17 GM PKT PO SCH (08:19)
[2018-09-02] MEDS: COLCHICINE 0.6 MG TAB PO SCH ×2 (08:19→20:21)
[2018-09-02] MEDS: DOCUSATE SODIUM 100 MG CAP PO SCH ×2 (08:19→20:21)
[2018-09-02] MEDS: CYCLOBENZAPRINE HCL 10 MG TAB PO PRN ×2 (08:19→20:21)
[2018-09-02] MEDS: NICOTINE 14 MG/24 HR PATCH TD SCH (08:20)
[2018-09-02] MEDS: ENOXAPARIN 40 MG/0.4ML SYR SC SCH (08:20)
[2018-09-02] MEDS: amLODIPine BESYL(*) 5 MG TAB PO SCH (08:20)
[2018-09-02] MEDS: [UNRECOGNIZED DRUG - OTHER] TP PRN (10:41)
[2018-09-02] MEDS: PETROLATUM WHITE TP PRN (10:41)
[2018-09-02 15:50] VITALS: BP 133/79
[2018-09-03] MEDS: SALMETEROL/FLUTIC 250/50 1 INH INH SCH ×2 (05:32→17:15)
[2018-09-03 07:30] VITALS: BP 142/92
[2018-09-03] MEDS: DOCUSATE SODIUM 100 MG CAP PO SCH ×2 (08:36→21:24)
[2018-09-03] MEDS: ENOXAPARIN 40 MG/0.4ML SYR SC SCH (08:37)
[2018-09-03] MEDS: POLYETHYLENE GLYCOL 17 GM PKT PO SCH (08:37)
[2018-09-03] MEDS: FOLIC ACID/CYANOCOB/PYRIDOXINE PO SCH (08:37)
[2018-09-03] MEDS: amLODIPine BESYL(*) 5 MG TAB PO SCH (08:37)
[2018-09-03] MEDS: CYCLOBENZAPRINE HCL 10 MG TAB PO PRN ×2 (08:37→21:24)
[2018-09-03] MEDS: THIAMINE HCL 100 MG TAB PO SCH (08:37)
[2018-09-03] MEDS: COLCHICINE 0.6 MG TAB PO SCH ×2 (08:37→21:24)
[2018-09-03] MEDS: oxyCODONE HCL 5 MG CAP PO PRN ×3 (08:37→17:42)
[2018-09-03] MEDS: NICOTINE 14 MG/24 HR PATCH TD SCH (08:38)
--- NOTE | 2018-09-03 14:51 | Medical Nutrition Therapy ---
Nutrition Anthropometrics Height (Inches): 69.00 Height (Calculated Centimeters: 175.003952 Weight (Pounds): 133 Weight (Calculated Kilograms): 60.348 Ata Nutrition Score: Probably Inadequate Ata Nutrition Risk Score: 12 Dietary Referral Nutrition Risk Factors: Nutrition Risk Comment: Nutritional Diagnosis Nutritional Risk Acuity 2: Unintended Wt Loss >5%/mo, %IBW 75-80% Nutritional Risk Acuity 3: Nausea, Alcohol abuse Nutritional Acuity: 2-Moderate Nutrition Diagnosis: Increased Nutrient Needs Nutrition Etiology: Physiological Causes Nutrition Problem/Etiology/Sym: AEB s/p hip fx with alb 3 Energy Requirement: 1800 (M- StJ) Protein Requirement: 56 (1gm/kg) Fluid Requirement: 1680 (30ml/kg) Diet Type: Diet as Tolerated SURY/REG Nutrition Intervention: Cont diet as ordered, Encourage intake, HS snack, Between meal supplement Additional Diet Restrictions: OFFER NUTR SUPPLMENTS AND PUT PRO POWDER IN APPROPRIATE FOODS Nutrition Monitoring & Eval Nutrition Goals: Eat 75-100% Meal Nutrition Follow-Up: Good Intake RD Patient Assessment Time: [address] Assessment Type: RD Re-Assessment Patient Nutrition Acuity: 2-Moderate Follow Up Date: Sep 11, 2018 Nutritional Comment: 08/24 Pt admitted s/p hip fx. Pt had alcohol withdrawls with decreased intake on medical unit. Wt on Aug 14 148#. Current wt 124#. Pt stated his usual wt was 130#. Question 24# wt loss in 10 days discpite a poor intake as that would mean a kcal deficit of 8400 kcal/day. wt loss may be r/t fulid loss and/or error or difference in scale. Will cont to monitor wt. Current wt places pt at 78% IBWR. Will offer nutr supplments to increase kcal and and protein intake. Alb 2.9. Pt cont lethargic which may affect nutritional intake. BK 08/28 Pt continues PT/OT for hip fx repair. No new labs since 08/23. Those abnormal labs include Na 131, glc 144, elevated liver enzymes, tot pro 6.2, alb 2.9 and low H/H. Currently on SURY with very little intake over previous few days. Staff offering nutr suppl. Will add protein powder to appropriate foods. No new wt since 08/24. Will cont to monitor and encourage intake.-EK 09/03 Intake rangie 75-100%. Alb improved slightly to 3. No new wt. Will cont to monitor and encourage intake. MANSI HERRMANN Sep 03, 2018 14:51
[2018-09-03 15:30] VITALS: BP 136/79
[2018-09-03] MEDS: PETROLATUM WHITE TP PRN (15:57)
[2018-09-03] MEDS: [UNRECOGNIZED DRUG - OTHER] TP PRN (15:57)
[2018-09-04] MEDS: SALMETEROL/FLUTIC 250/50 1 INH INH SCH ×2 (06:09→17:14)
[2018-09-04 08:30] VITALS: BP 133/80
[2018-09-04] MEDS: NICOTINE 14 MG/24 HR PATCH TD SCH (08:32)
[2018-09-04] MEDS: amLODIPine BESYL(*) 5 MG TAB PO SCH (08:33)
[2018-09-04] MEDS: FOLIC ACID/CYANOCOB/PYRIDOXINE PO SCH (08:37)
[2018-09-04] MEDS: COLCHICINE 0.6 MG TAB PO SCH ×2 (08:37→20:20)
[2018-09-04] MEDS: CYCLOBENZAPRINE HCL 10 MG TAB PO PRN ×2 (08:37→19:20)
[2018-09-04] MEDS: oxyCODONE HCL 5 MG CAP PO PRN ×3 (08:37→19:20)
[2018-09-04] MEDS: THIAMINE HCL 100 MG TAB PO SCH (08:37)
[2018-09-04] MEDS: ENOXAPARIN 40 MG/0.4ML SYR SC SCH (08:37)
[2018-09-04] MEDS: DOCUSATE SODIUM 100 MG CAP PO SCH ×2 (08:37→20:21)
[2018-09-04] MEDS: POLYETHYLENE GLYCOL 17 GM PKT PO SCH (08:38)
[2018-09-04 16:00] VITALS: BP 123/75
[2018-09-05] MEDS: SALMETEROL/FLUTIC 250/50 1 INH INH SCH ×2 (05:20→17:19)
[2018-09-05 07:50] VITALS: BP 140/86
[2018-09-05] MEDS: DOCUSATE SODIUM 100 MG CAP PO SCH ×2 (09:00→20:53)
[2018-09-05] MEDS: POLYETHYLENE GLYCOL 17 GM PKT PO SCH (09:00)
[2018-09-05] MEDS: oxyCODONE HCL 5 MG CAP PO PRN ×3 (09:12→18:14)
[2018-09-05] MEDS: THIAMINE HCL 100 MG TAB PO SCH (09:12)
[2018-09-05] MEDS: amLODIPine BESYL(*) 5 MG TAB PO SCH (09:12)
[2018-09-05] MEDS: FOLIC ACID/CYANOCOB/PYRIDOXINE PO SCH (09:12)
[2018-09-05] MEDS: COLCHICINE 0.6 MG TAB PO SCH ×2 (09:12→20:55)
[2018-09-05] MEDS: ENOXAPARIN 40 MG/0.4ML SYR SC SCH (09:13)
[2018-09-05] MEDS: NICOTINE 14 MG/24 HR PATCH TD SCH (09:13)
--- NOTE | 2018-09-05 14:28 | Hospitalist Progress Note ---
Subjective Progress Notes Subjective He has no complaints this afternoon. He reports he has been improving with physical therapy. Patient Complains of: Cardiovascular: No: Chest Pain Respiratory: No: Shortness of Breath Physical Exam Vital Signs Date Time Temp Pulse Resp B/P (MAP) Pulse Ox O2 Delivery O2 Flow Rate FiO2 09/05/18 10:20 92 Room Air 09/05/18 07:50 97.8 94 18 140/86 (104) Intake and Output 09/05/18 07:00 Intake Total 1250 ml Output Total 125 ml Balance 1125 ml Intake Oral 1250 ml Output Urine Total 125 ml # Voids 5 # Bowel Movements 1 General Appearance: Alert, Awake, No Acute Distress, Afebrile Neuro: No Gross deficits Cardiovascular: Regular Rate and Rhythm Respiratory: No Respiratory Distress, Clear to Auscultation GI: Soft and Non-Tender Extremities: Warm, Perfused; No Edema Psych: Alert & Oriented X3, Appropriate Mood & Affect Assessment and Plan Problems: (1) Hip fracture, right Status: Acute Assessment & Plan: He had a MINDI with Dr. Gutierrez on 08/15/18 and appears to have tolerated it well. He had alcohol withdrawal post-op, which has complicated his rehab. He is on Lovenox for DVT prophylaxis. (2) Headache Status: Acute Assessment & Plan: The patient states he has had a headache but no more neck stiffness than usual. He notes the only thing that helps is to sleep. Once he falls asleep the headache resolves. Suspect based on this history and his history of previous neck surgery that this is muscular. Recommended a heating pad but he declined. Resolved. (3) HTN (hypertension) Status: Chronic Assessment & Plan: Continue amlodipine. Monitor BPs. He has had a few high readings. (4) Asthma Status: Chronic Assessment & Plan: Continue Advair. (5) Alcohol abuse Status: Acute Assessment & Plan: He did have withdrawal while on the medical floor. He was on CIWA at that time. His symptoms have resolved. (6) TBI (traumatic brain injury) Status: Chronic Assessment & Plan: Per the patient's PMH. The patient is a poor historian and is unable to confirm details of the injury. His left arm has minimal function and use. He does wear a sling at home. Problem Qualifiers (1) HTN (hypertension): Hypertension type: essential hypertension Qualified Codes: I10 - Essential (primary) hypertension SUSAN WADEP Sep 05, 2018 14:28
[2018-09-05 17:00] VITALS: BP 126/77
[2018-09-06] MEDS: SALMETEROL/FLUTIC 250/50 1 INH INH SCH ×2 (06:13→18:04)
[2018-09-06 08:15] VITALS: BP 125/81
[2018-09-06] MEDS: POLYETHYLENE GLYCOL 17 GM PKT PO SCH (09:00)
[2018-09-06] MEDS: DOCUSATE SODIUM 100 MG CAP PO SCH ×2 (09:00→20:41)
[2018-09-06] MEDS: amLODIPine BESYL(*) 5 MG TAB PO SCH (09:00)
[2018-09-06] MEDS: COLCHICINE 0.6 MG TAB PO SCH ×2 (09:06→20:42)
[2018-09-06] MEDS: FOLIC ACID/CYANOCOB/PYRIDOXINE PO SCH (09:06)
[2018-09-06] MEDS: THIAMINE HCL 100 MG TAB PO SCH (09:06)
[2018-09-06] MEDS: ENOXAPARIN 40 MG/0.4ML SYR SC SCH (09:07)
[2018-09-06] MEDS: NICOTINE 14 MG/24 HR PATCH TD SCH (09:07)
[2018-09-06] MEDS: oxyCODONE HCL 5 MG CAP PO PRN ×3 (09:07→18:07)
--- NOTE | 2018-09-06 12:45 | OT ECF NOTE ---
Type of Note: 2-week progress note Primary Medical Diagnosis: Generalized weakness s/p R MINDI due to fracture: WBAT with posterior hip precautions Occupational Therapy Evaluation Date: 08/23/18 SUBJECTIVE: Prior Hospitalization: Please see [facility] for Med/Surg records - recovery complicated due to ETOH withdraw Prior Level of Function: Independent with ADLs/IADLs Prior Living Status: Single level house, Alone Community Services: No known needs Home Accessibility: Stairs with rails, All needs on one level Equipment Owned: Not addressed at this time Medical Complications/Past Medical History: Please refer to EMR Psychosocial Support: Niece that resides in [place]. Otherwise, unknown. Pain Scale (0-10): Pt reports improved pain in right hip. No numerical rating. Reports primarily stiffness that improves with ambulation OBJECTIVE: Strength: MMT: Right Left Shoulder Flexion WFL 1/5 Elbow Flexion WFL 1/5 Wrist Extension WFL 1/5 Marble Supervisor WFL 1/5 (5= normal, 4= good, 3= fair, 2= poor, 1= trace) ROM: Left, Severely limited. Pt reports having a simple sling that he typically dons at all times. Functional Transfer: Assistive Device: RW Transfer Ability: CGA/SBA ADL: Upper body dressing: Assistive device: None Upper body dressing ability: Set-up Lower body dressing: Assistive device: Stockbroker/sock aid Lower body dressing ability: Min A with v/c's. Pt will need to demonstrate improved carryover and adherence to posterior hip precautions prior to discharge home alone. Toileting: Assistive device: Raised toilet seat with grab bars Toileting ability: Min A Grooming/hygiene: Assistive device: Seated Grooming ability: Independent Bathing: Assistive device: Bathing ability: N/T Standardized Assessment: Denys Index of Activities of Daily Livin/20 upon initial evaluation (08/23/18). 11/01 at two week progress note (09/06/18). ASSESSMENT: Prior to admission, Jhoan was living alone in a single level home. He has improved to ambulating with CGA/SBA and requiring minimal assist for ADLs. He continues to require education and reinforcement of posterior hip precautions. He will benefit from skilled OT services to improve dynamic balance, receive appropriate AE recommendations, and optimize independence with ADLs. A home evaluation is scheduled for Monday (09/10/18) to determine safety and independence within the home environment. Problem List/Current Limitations: Pain Decreased activity tolerance Decreased strength Decreased ROM Decreased balance Generalized weakness Abnormal tonal influence Poor safety awareness Decreased problem solving Decreased initiation Confusion Short Term Goals: 1) Pt will be Min A UB/LB dressing. Progressing towards. 2) Pt will be Min A grooming/hygiene standing. Updated. 3) Pt will be Mod A toilet task. GOAL MET. NEW GOAL: Pt will be Mod (I) toilet task. 4) Pt will be Mod A shower task. Not addressed. 5) Pt Denys Index of ADLs score will improve by 2 points. GOAL MET. 6) NEW GOAL: Pt will be Mod (I) light meal prep task. Penitentiary Goals: Return to PLOF Patient Goals: Return home Rehabilitation Prognosis: Good Barriers to Discharge: Minimal recall and adherence of posterior hip precautions. Limited assistance for IADLs upon discharge home. PLAN: The patient will benefit from skilled occupational therapy services 5 times per week for 2 weeks including: Ther ex ADL training Safety training Ther act IADL training Transfer training Adaptive equip training Bed mobility Energy conservation Thank you for this referral. If you have any questions, concerns, or comments about this report or plan, please contact me at . Sandi Martin MS, OTR/L Occupational Therapist [facility]
[2018-09-06] MEDS: CYCLOBENZAPRINE HCL 10 MG TAB PO PRN (14:08)
[2018-09-06 16:57] VITALS: BP 130/78
[2018-09-07] MEDS: oxyCODONE HCL 5 MG CAP PO PRN ×4 (00:30→18:04)
[2018-09-07] MEDS: SALMETEROL/FLUTIC 250/50 1 INH INH SCH ×2 (05:32→17:29)
[2018-09-07 08:25] VITALS: BP 141/85
[2018-09-07] MEDS: THIAMINE HCL 100 MG TAB PO SCH (08:55)
[2018-09-07] MEDS: ENOXAPARIN 40 MG/0.4ML SYR SC SCH (08:55)
[2018-09-07] MEDS: FOLIC ACID/CYANOCOB/PYRIDOXINE PO SCH (08:55)
[2018-09-07] MEDS: amLODIPine BESYL(*) 5 MG TAB PO SCH (08:55)
[2018-09-07] MEDS: NICOTINE 14 MG/24 HR PATCH TD SCH (08:55)
[2018-09-07] MEDS: COLCHICINE 0.6 MG TAB PO SCH ×2 (08:55→20:25)
[2018-09-07] MEDS: DOCUSATE SODIUM 100 MG CAP PO SCH ×2 (09:00→20:25)
[2018-09-07] MEDS: POLYETHYLENE GLYCOL 17 GM PKT PO SCH (09:00)
[2018-09-07 16:11] VITALS: BP 136/80
[2018-09-08] MEDS: oxyCODONE HCL 5 MG CAP PO PRN ×4 (00:20→18:31)
[2018-09-08] MEDS: SALMETEROL/FLUTIC 250/50 1 INH INH SCH ×2 (05:42→17:06)
[2018-09-08 08:35] VITALS: BP 127/77
[2018-09-08] MEDS: amLODIPine BESYL(*) 5 MG TAB PO SCH (09:00)
[2018-09-08] MEDS: DOCUSATE SODIUM 100 MG CAP PO SCH ×2 (09:00→20:11)
[2018-09-08] MEDS: POLYETHYLENE GLYCOL 17 GM PKT PO SCH (09:00)
[2018-09-08] MEDS: COLCHICINE 0.6 MG TAB PO SCH ×2 (09:33→20:42)
[2018-09-08] MEDS: FOLIC ACID/CYANOCOB/PYRIDOXINE PO SCH (09:33)
[2018-09-08] MEDS: THIAMINE HCL 100 MG TAB PO SCH (09:33)
[2018-09-08] MEDS: ENOXAPARIN 40 MG/0.4ML SYR SC SCH (09:33)
[2018-09-08] MEDS: NICOTINE 14 MG/24 HR PATCH TD SCH (09:34)
[2018-09-08 15:40] VITALS: BP 142/89
[2018-09-09] MEDS: oxyCODONE HCL 5 MG CAP PO PRN ×3 (05:09→18:06)
[2018-09-09] MEDS: SALMETEROL/FLUTIC 250/50 1 INH INH SCH ×2 (05:51→17:07)
[2018-09-09 07:50] VITALS: BP 112/68
[2018-09-09] MEDS: ENOXAPARIN 40 MG/0.4ML SYR SC SCH (08:31)
[2018-09-09] MEDS: POLYETHYLENE GLYCOL 17 GM PKT PO SCH (08:31)
[2018-09-09] MEDS: THIAMINE HCL 100 MG TAB PO SCH (08:32)
[2018-09-09] MEDS: FOLIC ACID/CYANOCOB/PYRIDOXINE PO SCH (08:32)
[2018-09-09] MEDS: COLCHICINE 0.6 MG TAB PO SCH ×2 (08:32→20:57)
[2018-09-09] MEDS: DOCUSATE SODIUM 100 MG CAP PO SCH ×2 (08:32→20:57)
[2018-09-09] MEDS: NICOTINE 14 MG/24 HR PATCH TD SCH (08:32)
[2018-09-09] MEDS: amLODIPine BESYL(*) 5 MG TAB PO SCH (08:32)
[2018-09-09 16:15] VITALS: BP 128/83
[2018-09-10] MEDS: oxyCODONE HCL 5 MG CAP PO PRN ×4 (01:08→20:50)
[2018-09-10] MEDS: SALMETEROL/FLUTIC 250/50 1 INH INH SCH ×2 (05:55→17:28)
[2018-09-10 07:45] VITALS: BP 142/86
[2018-09-10] MEDS: CYCLOBENZAPRINE HCL 10 MG TAB PO PRN (08:10)
[2018-09-10] MEDS: ENOXAPARIN 40 MG/0.4ML SYR SC SCH (08:39)
[2018-09-10] MEDS: FOLIC ACID/CYANOCOB/PYRIDOXINE PO SCH (08:39)
[2018-09-10] MEDS: COLCHICINE 0.6 MG TAB PO SCH (08:39)
[2018-09-10] MEDS: POLYETHYLENE GLYCOL 17 GM PKT PO SCH (08:39)
[2018-09-10] MEDS: DOCUSATE SODIUM 100 MG CAP PO SCH ×2 (08:39→20:50)
[2018-09-10] MEDS: THIAMINE HCL 100 MG TAB PO SCH (08:39)
[2018-09-10] MEDS: NICOTINE 14 MG/24 HR PATCH TD SCH (08:40)
[2018-09-10] MEDS: amLODIPine BESYL(*) 5 MG TAB PO SCH (08:40)
[2018-09-10 14:16] LABS: PLATELET COUNT, AUTOMATED 436 K/uL (150-450)
[2018-09-10 16:50] VITALS: BP 133/87
--- NOTE | 2018-09-10 18:41 | Miscellaneous Provider Note ---
Miscellaneous Provider Note Note Mr. Menezes was noted to have some low grade fever. Labs are unremarkable including normal WBC count, negative UA. Will check CXR to see if any evidence of respiratory infection. SALMA BASILIO MD Sep 10, 2018 18:41
--- NOTE | 2018-09-10 22:46 | RADIOLOGY IMAGING REPORT ---
FAC[place] [facility] [place] NAME: Jhoan Menezes : 1960 MR: [id number] V: [id number] EXAM DATE: ORDERING PHYSICIAN: SALMA BASILIO TECHNOLOGIST: Location: [facility] [place] Patient: Jhoan Menezes : 1960 Visit/Account:[id number] Date of Sevice: 09/10/2018 CHEST SINGLE AP COMPARISONS: Single view chest dated August 15, 2018 ADDITIONAL PERTINENT HISTORY: Fever FINDINGS: Cardiomediastinal silhouette: Negative. Pulmonary vasculature: Negative. Lung christianson: Negative. Pleural spaces: Negative. Osseous structures: Previous anterior interbody fusion of the cervical spine. Surrounding soft tissues: Negative. IMPRESSION: No evidence of acute cardiopulmonary disease. Report Dictated By: Elroy Peña MD at 09/10/2018 10:41 PM Report E-Signed By: Elroy Peña MD at 09/10/2018 10:42 PM WSN:[id number]
[2018-09-11] MEDS: oxyCODONE HCL 5 MG CAP PO PRN (05:13)
[2018-09-11] MEDS: SALMETEROL/FLUTIC 250/50 1 INH INH SCH (05:36)
[2018-09-11] MEDS ORDERED: OXYC5TAB38 PO (06:42)
[2018-09-11] MEDS ORDERED: FOLTX PO (06:42)
[2018-09-11] MEDS ORDERED: POLY17PO21 PO (06:42)
--- NOTE | 2018-09-11 06:48 | Hospitalist Depart ---
Discharge Summary Reason for Hosp/Final Diag: (1) Hip fracture, right Status: Acute Hospital Course & Plan: He had a MINDI with Dr. Gutierrez on 08/15/18 and appears to have tolerated it well. He had alcohol withdrawal post-op, which has complicated his rehab. He showed slow, but continual improvements. He will be discharged to home with help from family and possibly MARGOT. (2) HTN (hypertension) Status: Chronic Hospital Course & Plan: Continue amlodipine. Monitor BPs. (3) Asthma Status: Chronic Hospital Course & Plan: Continue Advair. (4) Alcohol abuse Status: Acute Hospital Course & Plan: He did have withdrawal while on the medical floor. He was on CIWA at that time. His symptoms have resolved. (5) TBI (traumatic brain injury) Status: Chronic Hospital Course & Plan: Per the patient's PMH. The patient is a poor historian and is unable to confirm details of the injury. His left arm has minimal function and use. He does wear a sling at home. Departure Weight (Pounds): 136 Weight (Ounces): 0.7 Result Diagram: 09/10/18 1403 09/10/18 1403 Condition: Improved Discharge: Home (with family) Time Spent: > 30 min Discharge Instructions Home Meds Active Scripts Folic Acid/Cyanocob/Pyridoxine (FOLBEE TABLET) 1 Each Tab, 1 EACH PO QDAY for 30 Days, #30 TAB 1 Refill Prov:SALMA BASILIO MD 09/11/18 Polyethylene Glycol 3350 (POLYETHYLENE GLYCOL 3350) 17 Gm Powd.pack, 17 GM PO QDAY, #30 PACK 1 Refill Prov:SALMA BASILIO MD 09/11/18 Oxycodone Hcl (OXYCODONE HCL) 5 Mg Tablet, 5 MG PO Q4HP PRN for PAIN, #30 TAB 0 Refills Prov:SALMA BASILIO MD 09/11/18 Reported Medications Albuterol Sulfate 90 Mcg/Act (PROAIR HFA 90 MCG/ACT) 8.5 Gm Hfa.aer.ad, 2 PUFF IH QID PRN for PRN, INHALER 08/27/18 Fluticasone/Salmeterol (ADVAIR 250-50 DISKUS) 1 Each Disk.w.dev, 1 EACH IH BID 08/27/18 Amlodipine Besylate (AMLODIPINE BESYLATE) 10 Mg Tablet, 1 TAB PO QDAY, TAB 08/16/18 Discontinued Reported Medications Aspirin/Caffeine (LORENA BACK & BODY CAPLET) 1 Each Tablet, 1 EACH PO DAILY 08/26/18 Ibuprofen (IBUPROFEN) 200 Mg Capsule, 1 CAP PO DAILY PRN for PAIN, CAPSULE 08/26/18 Naproxen Sodium (Naproxen Sodium ER) 500 Mg Tbmp.24hr, 1 CAP PO 1-2XD PRN for PAIN 08/16/18 Diet: Regular Activity: As Tolerated, With Walker, No Driving Special Instructions: * Use abduction device (pillow) to maintain hip precautions. Do not flex hip more than 70 degrees. NO ALCOHOL. Follow up with Adrienne ARGUETA in next 2-3 weeks or sooner if any problems. Copies to: ADRIENNE GONZALEZ ; Venous Thromboembolism Antithrombotics Is Pt On Any Antithrombotics?: No Problem Qualifiers (1) HTN (hypertension): Hypertension type: essential hypertension Qualified Codes: I10 - Essential (primary) hypertension SALMA BASILIO MD Sep 11, 2018 06:48
[2018-09-11 07:55] VITALS: BP 111/69
[2018-09-11] MEDS: THIAMINE HCL 100 MG TAB PO SCH (08:46)
[2018-09-11] MEDS: FOLIC ACID/CYANOCOB/PYRIDOXINE PO SCH (08:46)
[2018-09-11] MEDS: ENOXAPARIN 40 MG/0.4ML SYR SC SCH (08:47)
[2018-09-11] MEDS: POLYETHYLENE GLYCOL 17 GM PKT PO SCH (08:47)
[2018-09-11] MEDS: DOCUSATE SODIUM 100 MG CAP PO SCH (08:47)
[2018-09-11] MEDS: NICOTINE 14 MG/24 HR PATCH TD SCH (08:48)
[2018-09-11] MEDS: amLODIPine BESYL(*) 5 MG TAB PO SCH (08:48)
--- NOTE | 2018-09-11 10:04 | Medical Nutrition Therapy ---
Nutrition Anthropometrics Height (Inches): 69.00 Height (Calculated Centimeters: 175.842245 Weight (Pounds): 136 Weight (Calculated Kilograms): 61.708 Ata Nutrition Score: Probably Inadequate Ata Nutrition Risk Score: 15 Dietary Referral Nutrition Risk Factors: Nutrition Risk Comment: Nutritional Diagnosis Nutritional Risk Acuity 2: Unintended Wt Loss >5%/mo Nutritional Risk Acuity 3: Nausea, Alcohol abuse Nutritional Acuity: 2-Moderate Nutrition Diagnosis: Increased Nutrient Needs Nutrition Etiology: Physiological Causes Nutrition Problem/Etiology/Sym: AEB s/p hip fx with alb 3 Energy Requirement: 1800 (M- StJ) Protein Requirement: 56 (1gm/kg) Fluid Requirement: 1680 (30ml/kg) Diet Type: Diet as Tolerated SURY/REG Nutrition Intervention: Cont diet as ordered, Encourage intake, HS snack, Between meal supplement Food Likes: likes solomon ensure Additional Diet Restrictions: OFFER NUTR SUPPLMENTS AND PUT PRO POWDER IN APPROPRIATE FOODS Nutrition Monitoring & Eval Nutrition Goals: Eat 75-100% Meal RD Patient Assessment Time: [address] Assessment Type: RD Re-Assessment Patient Nutrition Acuity: 2-Moderate Follow Up Date: Sep 18, 2018 Nutritional Comment: 08/24 Pt admitted s/p hip fx. Pt had alcohol withdrawls with decreased intake on medical unit. Wt on Aug 14 148#. Current wt 124#. Pt stated his usual wt was 130#. Question 24# wt loss in 10 days discpite a poor intake as that would mean a kcal deficit of 8400 kcal/day. wt loss may be r/t fulid loss and/or error or difference in scale. Will cont to monitor wt. Current wt places pt at 78% IBWR. Will offer nutr supplments to increase kcal and and protein intake. Alb 2.9. Pt cont lethargic which may affect nutritional intake. BK 08/28 Pt continues PT/OT for hip fx repair. No new labs since 08/23. Those abnormal labs include Na 131, glc 144, elevated liver enzymes, tot pro 6.2, alb 2.9 and low H/H. Currently on SURY with very little intake over previous few days. Staff offering nutr suppl. Will add protein powder to appropriate foods. No new wt since 08/24. Will cont to monitor and encourage intake.-EK 09/03 Intake rangie 75-100%. Alb improved slightly to 3. No new wt. Will cont to monitor and encourage intake. SAM 09/11 Pt cont on regular diet. Intake average 88%. Wt is up 9.6%. Alb improved to 3.9. Will cont to monitor and encourage intake. MANSI HERRMANN Sep 11, 2018 10:04
--- NOTE | 2018-09-11 12:51 | OT ECF NOTE ---
Type of Note: Discharge Note Primary Medical Diagnosis: Generalized weakness s/p R MINDI due to fracture: WBAT with posterior hip precautions Occupational Therapy Evaluation Date: 08/23/18 SUBJECTIVE: Prior Hospitalization: Please see [facility] for Med/Surg records - recovery complicated due to ETOH withdraw Prior Level of Function: Independent with ADLs/IADLs Prior Living Status: Single level house, Alone Community Services: No known needs Home Accessibility: Stairs with rails, All needs on one level Equipment Owned: Not addressed at this time Medical Complications/Past Medical History: Please refer to EMR Psychosocial Support: Niece that resides in [place]. Otherwise, unknown. Pain Scale (0-10): Pt reports improved pain in right hip. No numerical rating. Reports primarily stiffness that improves with ambulation OBJECTIVE: Strength: MMT: Right Left Shoulder Flexion WFL 1/5 Elbow Flexion WFL 1/5 Wrist Extension WFL 1/5 Shoveler WFL 1/5 (5= normal, 4= good, 3= fair, 2= poor, 1= trace) ROM: Left, Severely limited. Pt reports having a simple sling that he typically dons at all times. Functional Transfer: Assistive Device: FWW Transfer Ability: SBA ADL: Upper body dressing: Assistive device: None Upper body dressing ability: Set-up Lower body dressing: Assistive device: Block Trader/sock aid, long handled shoe horn Lower body dressing ability: SBA with v/c's. Toileting: Assistive device: Raised toilet seat with grab bars Toileting ability: Mod I. Grooming/hygiene: Assistive device: Standing Grooming ability: Independent Bathing: Assistive device: Shower chair, grab bars, hand held shower Bathing ability: SBA Standardized Assessment: Denys Index of Activities of Daily Livin/20 upon initial evaluation (08/23/18). 11/01 at two week progress note (09/06/18). at D/C. ASSESSMENT: Prior to admission, Jhoan was living alone in a single level home. He has improved to ambulating with CGA/SBA and requiring minimal assist for ADLs. He continues to require education and reinforcement of posterior hip precautions. He will benefit from skilled OT services to improve dynamic balance, receive appropriate AE recommendations, and optimize independence with ADLs. A home evaluation is scheduled for Monday (09/10/18) to determine safety and independence within the home environment. Problem List/Current Limitations: Pain Decreased activity tolerance Decreased strength Decreased ROM Decreased balance Generalized weakness Abnormal tonal influence Poor safety awareness Decreased problem solving Decreased initiation Confusion Short Term Goals: 1) Pt will be Min A UB/LB dressing. Progressing towards. Goal met. 2) Pt will be Min A grooming/hygiene standing. Updated. Goal met. 3) Pt will be Mod A toilet task. GOAL MET. NEW GOAL: Pt will be Mod (I) toilet task. Goal Met. 4) Pt will be Mod A shower task. Goal met. 5) Pt Denys Index of ADLs score will improve by 2 points. GOAL MET. 6) NEW GOAL: Pt will be Mod (I) light meal prep task. Goal met. Pipelaying Fitter Goals: Return to PLOF Patient Goals: Return home Rehabilitation Prognosis: Good Barriers to Discharge: Minimal recall and adherence of posterior hip precautions. Limited assistance for IADLs upon discharge home. PLAN: The patient will d/c to mother's home in [place], alone with assistance from family. Thank you for this referral. If you have any questions, concerns, or comments about this report or plan, please contact me at . Kellen Krause, OTR/L Occupational Therapist [facility]
--- NOTE | 2018-09-12 10:20 | PT ECF NOTE ---
Type of Note: Discharge Summary 09/11/18 Primary Medical Diagnosis: s/p R MINDI due to fracture: WBAT with posterior hip precautions Physical Therapy Evaluation Date: 08/23/18 SUBJECTIVE: Prior Hospitalization: Please see [facility] for Med/Surg records - recovery complicated due to ETOH withdraw Prior Level of Function: Independent with functional mobility. Prior Living Status: Single level house, Alone Pt to discharge with the assistance of his niece and [id number] Community Services: No known needs Home Accessibility: 2 Stairs with rails Equipment Owned: unknown at time of eval Medical Complications/Past Medical History: Please see [facility]. R UE weakness/decreased ROM. Psychosocial Support: unknown Pain Scale (0-10): Pt reporting significant R hip and foot pain with all movement. OBJECTIVE: Bed Mobility: SBA due to hip precautions. Assistive device: Bed rail, Head of bed elevated Transfers: SBA with rolling walker. Gait: 420' with SBA/CGA and RW; CGA for uneven surfaces Stairs: Ascend/descend 2-4 stairs with CGA Car Transfer: SBA ASSESSMENT: Pt participated in home evaluation at which time it was determined Pt was safe to DC home with the assistance of his niece and [id number]. Please see home evaluation. Pt did not meet goals but desire to go home and has demonstrated safety with mobility tasks. Problem List/Current Limitations: Pain, Decreased activity tolerance, Decreased strength, Decreased ROM, Decreased coordination, Decreased balance, Generalized weakness, Abnormal tonal influence, Poor trunk/head control, Poor safety awareness, Memory deficits Short Term Goals: 1. Mod I bed mobility. 2. Mod I transfers. 3. Mod I gait x 50' with RW. 4. Ascend/descend 2 stairs SBA. 5. Independent with hip precautions. Group Home Goals: Return to prior level of function. Patient Goals: Return to prior level of function. Rehabilitation Prognosis: Fair Barriers for Discharge: Slow recovery thus far. PLAN: Discharge home to the care of his family. Thank you for this referral. If you have any questions, concerns, or comments about this report or plan, please contact me at . Geri Spencer, PT, DPT, GCS MTDD
== END 2018-09-11 10:55 | disposition home or self-care (01) | DRG 561 ==
LOC: ECF 13:10
PROVIDERS: ADMIT Family Medicine; ATTEND Family Medicine
DX: S72.011D Unspecified intracapsular fracture of right femur, subsequent encounter for closed fracture with routine healing (principal); I10 Essential (primary) hypertension; F17.220 Nicotine dependence, chewing tobacco, uncomplicated; Z96.641 Presence of right artificial hip joint; Z87.820 Personal history of traumatic brain injury; J45.909 Unspecified asthma, uncomplicated; Z88.8 Allergy status to other drugs, medicaments and biological substances; W17.89XD Other fall from one level to another, subsequent encounter; Y92.008 Other place in unspecified non-institutional (private) residence as the place of occurrence of the external cause; Y99.8 Other external cause status
CPT/HCPCS: 36415; 71045; 81001; 82040; 82247; 82310; 82374; 82435; 82565; 82947; 84075; 84132; 84155; 84295; 84450; 84460; 84520; 85025; 87088; 94640; 97163; 97167; J1650